=== PATIENT | male | born 1955 | race Caucasian/White ===

== ENCOUNTER → 2017-09-01 | Outpatient (CLI) | payer BC ==
[2017-09-01 16:16] LABS: Basophils # (A) 0.1 k/uL (0-0.2); Basophils % (A) 1 %; Eosinophils # (A) 0.2 k/uL (0-0.7); Eosinophils % (A) 4 %; HCT 46.1 % (39.0-53.0); HGB 15.2 gm/dL (13.0-17.5); Lymphocytes # (A) 1.4 k/uL (1.0-4.8); Lymphocytes % (A) 24 %; MCH 30.4 pg (25.0-35.0); Monocytes # (A) 0.4 k/uL (0-1.0); Monocytes % (A) 7 %; Neutrophils # (A) 3.4 k/uL (1.3-7.7); Neutrophils % (A) 61 %; Platelet Count 250 k/uL (150-450); RBC 5.01 m/uL (4.30-5.90); WBC 5.6 k/uL (3.8-10.6)
[2017-09-01 16:24] LABS: Calcium 9.6 mg/dL (8.4-10.2); Potassium 4.3 mmol/L (3.5-5.1)
== END | disposition home or self-care (01) ==
LOC: LABWHC1 15:28
PROVIDERS: ATTEND Urology
DX: Z01.818 Encounter for other preprocedural examination (principal); C61 Malignant neoplasm of prostate; R35.0 Frequency of micturition; R53.83 Other fatigue
CPT/HCPCS: 36415; 80048; 85025; 87086

== ENCOUNTER 2017-09-08 05:33 | Day surgery (SDC) | payer BC ==
[2017-09-01 11:38] VITALS: BMI 25.5
[~2017-09-08 05:33] MED LIST: HEPARIN SODIUM,PORCINE 5,000 UNIT/ML 1 ML VIAL SQ ONE
[2017-09-08] MEDS ORDERED: SCOPOLAMINE 1.5MG/72HR PATCH TRANSDERM ONE (05:51)
[2017-09-08] MEDS ORDERED: fentaNYL (PF) 50 MCG/ML 2 ML AMP IV PRN (05:51)
[2017-09-08] MEDS ORDERED: MIDAZOLAM 2 MG/2 ML VIAL IV PRN (05:51)
[2017-09-08] MEDS ORDERED: DEXAMETHASONE SOD PHOSPHATE 10 MG/ML 1 ML VIAL IV ONE (05:51)
[2017-09-08] MEDS ORDERED: ONDANSETRON ODT 4 MG TAB PO ONE (05:51)
[2017-09-08] MEDS ORDERED: LACTATED RINGERS 1,000 ML IV ONE ×4 (06:42→13:06)
[2017-09-08] MEDS ORDERED: LIDOCAINE 1% 20 ML VIAL (10MG/ML) FOR IV START INTRADERMA ONE (06:43)
[2017-09-08] MEDS ORDERED: BUPIVACAINE (PF) 0.25% 30 ML VIAL SQ ONE ×2 (07:30→13:11)
[2017-09-08] MEDS: ceFAZolin IN SWFI 2 GM/20 ML SYRINGE IVP ONE ×2 (07:30→07:33)
[2017-09-08] MEDS ORDERED: SUCCINYLCHOLINE CHLORIDE 100 MG/5 ML SYR IV ONE (07:33)
[2017-09-08] MEDS ORDERED: LIDOCAINE 1% INJ 10MG/ML (20 ML MDV) ONE (07:33)
[2017-09-08] MEDS ORDERED: VECURONIUM 10 MG VIAL IV ONE (07:33)
[2017-09-08] MEDS ORDERED: MIDAZOLAM 2 MG/2 ML VIAL ONE (07:33)
[2017-09-08] MEDS ORDERED: PROPOFOL 10 MG/ML 20 ML VIAL IV ONE (07:33)
[2017-09-08] MEDS ORDERED: GLYCOPYRROLATE 0.2 MG/ML 2 ML VIAL ONE (07:33)
[2017-09-08] MEDS ORDERED: NEOSTIGMINE 1 MG/ML 10 ML VIAL ONE (07:33)
[2017-09-08] MEDS ORDERED: PHENYLEPHRINE-0.9% NACL SYG 1 MG/10 ML SYRINGE ONE (07:33)
[2017-09-08] MEDS ORDERED: LABETALOL 5 MG/ML VIAL MDV ONE (07:33)
[2017-09-08] MEDS ORDERED: fentaNYL (PF) 50 MCG/ML 2 ML AMP ONE (07:33)
[2017-09-08] MEDS ORDERED: MAG HYDROX/AL HYDROX/SIMETH 30 ML CUP PO PRN (12:56)
[2017-09-08] MEDS ORDERED: ONDANSETRON 4 MG/2 ML VIAL IVP PRN (12:56)
[2017-09-08] MEDS ORDERED: MORPHINE SULFATE 4 MG/0.8 ML SYRINGE (INJ) IVP PRN (12:56)
[2017-09-08] MEDS ORDERED: ACETAMINOPHEN TAB 325 MG TAB PO PRN (12:56)
--- NOTE | 2017-09-08 13:19 | P.OP ---
Date of Procedure: 09/08/17 Procedure(s) Performed: PREOPERATIVE DIAGNOSIS: Bilateral inguinal hernia POSTOPERATIVE DIAGNOSIS: Bilateral direct inguinal hernia PROCEDURE: Laparoscopic repair antral inguinal hernia with the da Bhavana robot assistance with mesh SURGEON: Tess EBL: See anesthesia records ANESTHESIA: General COMPLICATIONS: None OPERATIVE PROCEDURE: Procedure was initiated by urology. The preperitoneal dissection took place including lymphadenectomy by them. After the prostate was removed and the anastomosis was complete irrigation of the operative site took place. No active bleeding was seen. The patient had a direct hernia bilaterally. Right side was larger than the left. A 15 cm x 10 cm Pro retail field representative mesh was placed first in the left inguinal space. All hernia sites were properly covered. An additional 15 x 10 cm mesh was then placed in the right groin covering the hernia location. Following that the peritoneal defect was closed using V LOC sutures. The incision line was inspected and no bleeding was seen. The needles were removed. The specimen bag was brought out through the supraumbilical 12 mm trocar site after lengthening both the skin incision vertically in the fascia as well. That fascial closure took place at that time using a running 0 Vicryl suture. The skin at all incision sites were closed using 4-0 Monocryl sutures. Dermabond was applied and the incision sites. DISPOSITION: Stable to recovery room
[2017-09-08] MEDS ORDERED: hydrALAZINE HCL 20 MG/ML 1 ML VIAL IVP ONE (13:30)
[2017-09-08] MEDS ORDERED: MORPHINE SULFATE 4 MG/0.8 ML SYRINGE (INJ) IVP ONE (13:47)
[2017-09-08] MEDS: LACTATED RINGERS 1,000 ML IV SCH (14:46)
[2017-09-08] MEDS: KETOROLAC 30 MG/ML 1 ML VIAL IVP PRN (18:00)
[2017-09-08 20:55] VITALS: RESP 16
[2017-09-08] MEDS: DEXTROSE 5%-0.45% NACL 1,000 ML IV SCH ×3 (22:06→22:07)
[2017-09-08] MEDS: HEPARIN SODIUM,PORCINE 5,000 UNIT/ML 1 ML VIAL SQ SCH (22:06)
[2017-09-09] MEDS: DEXTROSE 5%-0.45% NACL 1,000 ML IV SCH ×2 (06:15→13:32)
[2017-09-09] MEDS: LACTATED RINGERS 1,000 ML IV SCH (06:17)
--- NOTE | 2017-09-09 10:11 | P.DS ---
Providers Attending physician: Bryn Allen Primary care physician: [facility] Course: The patient was admitted yesterday for a robotic-assisted radical prostatectomy by . He did well overnight. His vital signs are stable. He is afebrile. He is ambulating. His diet will be advanced to regular. If he tolerates that he'll be discharged home. He'll follow-up in the office with Dr. Allen in 1 week. Postoperative instructions been given. He'll go home with an indwelling catheter. Has been given a prescription of Maize. Patient Condition at Discharge: Good Plan - Discharge Summary Discharge Rx Participant: No New Discharge Prescriptions: New Ciprofloxacin HCl [Cipro] 250 mg PO Q12HR #6 tablet Hydrocodone/Acetaminophen [Maize 5-325] 1 - 2 each PO Q4HR PRN #20 tab PRN Reason: Pain Discharge Medication List Ciprofloxacin HCl [Cipro] 250 mg PO Q12HR #6 tablet 09/08/17 [Rx] Hydrocodone/Acetaminophen [Maize 5-325] 1 - 2 each PO Q4HR PRN #20 tab 09/08/17 [Rx] Follow up Appointment(s)/Referral(s): Tulio Pulido MD [Medical Doctor] - 3 Weeks Bryn Allen MD [STAFF PHYSICIAN] - 09/18/17 Activity/Diet/Wound Care/Special Instructions: Discharge home with Thompson catheter. No lifting, driving, or strenuous activity. Okay to shower. Patient should begin taking ciprofloxacin on 2017. Discharge Disposition: HOME SELF-CARE
[2017-09-09] MEDS: HEPARIN SODIUM,PORCINE 5,000 UNIT/ML 1 ML VIAL SQ SCH (10:20)
--- NOTE | 2017-09-09 10:27 | P.PN ---
Subjective Progress Note Date: 09/09/17 Principal diagnosis: Bilateral inguinal hernia Patient doing well today. Mild discomfort in the periumbilical region, no groin discomfort of significance. He is ambulating. He is hoping to go home. Objective - Vital Signs Vital signs: Vital Signs Temp 98.6 F 09/08/17 19:20 Pulse 109 H 09/08/17 19:20 Resp 16 09/09/17 00:19 BP 145/73 09/08/17 19:20 Pulse Ox 100 09/08/17 19:38 Intake & Output 09/08/17 09/09/17 09/09/17 18:59 06:59 18:59 Intake Total 2625 1540 Output Total 1230 2000 1100 Balance 1395 -460 -1100 Weight 73.936 kg Intake: IV 2625 Intake, IV Titration 1000 Amount Dextrose 5%-0.45% NaCl 1, 1000 000 ml @ 125 mls/hr IV . Q8H [facility] Rx#:[id number] Oral 540 Output: Urine 1030 2000 [address] Urethral 760 1100 Estimated Blood Loss 200 Other: Voiding Method Indwelling Catheter Indwelling Catheter # Voids 2 - Exam Abdomen: Soft, nondistended, mild tenderness at incision sites, mild groin tenderness Assessment and Plan Plan: Continue ambulation. No heavy lifting. Home per urology.
[2017-09-09] MEDS: KETOROLAC 30 MG/ML 1 ML VIAL IVP PRN (13:31)
[2017-09-09 14:26] VITALS: BP 135/85; PULSE 92; TEMP 100
--- NOTE | 2017-10-05 17:19 | P.OP ---
Date of Procedure: 09/08/17 Preoperative Diagnosis: Adenocarcinoma of the prostate, clinical stage TIc NX M0 Postoperative Diagnosis: Same Procedure(s) Performed: Nerve-Sparing Robotic-assisted Laparoscopic Prostatectomy (RALP) with Bilateral Pelvic Lymphadenectomy Anesthesia: ZEENAT Surgeon: Bryn Allen Damage Inside Adjuster #1: Lidia Villagomez Estimated Blood Loss (ml): 150 IV fluids (ml): 1,600 Pathology: other (Prostate, seminal vesicles, bilateral pelvic lymph nodes) Condition: stable Disposition: PACU Indications for Procedure: The patient is a 61-year-old male with no family history of prostate cancer. He underwent a prostate ultrasound with biopsies in May 2016, revealing small foci of Mingo 6 adenocarcinoma in 3 of 12 biopsies. His Prolaris score was low , and he was advised to undergo semiannual PSA/DARLIN with annual surveillance biopsies. He recently underwent repeat biopsies, revealing a focus of Mingo 4+ 3 adenocarcinoma. He has thus elected to undergo a nerve-sparing RALP with (B) PLND. He understands the possibility of post-op erectile dysfunction despite preservation of the neurovascular bundles. He also understands the possible need for adjuvant therapy. He will also undergo a BIH repair by Dr. Pulido; his umbilical hernia will also be repaired. Operative Findings: Bilateral inguinal hernias. No evidence of extraprostatic disease. Description of Procedure: The patient was taken in the operating room and placed in the dorsal lithotomy position, with his legs supported in Mandeep stirrups. He was carefully positioned on a beanbag for stability. The abdomen and external genitalia were prepped and draped sterilely. A Thompson catheter was inserted. The Veress needle was passed through the anterior abdominal wall immediately cephalad to the umbilicus, and insufflation was performed to a pressure of 20 mm Hg. Once insufflation was performed, the Veress needle was removed and a supraumbilical incision was made, through which a 12 mm camera port was placed. Under camera guidance, 3 8 mm robotic ports were placed, 2 on the left and one on the right. An additional 12 mm port was placed on the right lateral side for use as an data analysis assistant port. A 5 mm port was placed to the right of the camera port for suction. The patient was placed in Trendelenburg position, and docking was then performed to the da Bhavana system utilizing a 4-arm approach. The abdomen was examined. The sigmoid colon was mobilized out of the pelvis. The peritoneum was incised laterally in a wide fashion to create a peritoneal flap, to be sutured over the hernia repair later in the procedure. The endopelvic fascia was opened bilaterally, and muscular attachments from the urogenital diaphragm were swept away from the prostate. Bilateral pelvic lymphadenectomies were performed in the standard fashion. The peritoneal incisions were extended in a cephalad direction, and the vas deferens were divided bilaterally. Margins of dissection were the bifurcation of the iliac vessels proximally, the circumflex iliac vein distally, the external iliac artery laterally, and the obturator nerve medially. A combination of sharp and blunt dissection was used. Care was taken to avoid any neurovascular injury, and the use of monopolar electrocautery was avoided immediately adjacent to neurovascular structures. The lymphatic package was clipped distally. No enlarged lymph nodes were encountered. There were no complications. The vesical neck was incised transversely, down to the lumen. The Thompson catheter was brought out through the anterior vesical neck incision and was used for traction. The posterior aspect of the vesical neck was incised, such that the full-thickness of the vesical neck was divided. The anterior layer of the Denonvilliers fascia was incised, exposing the vas deferens. Each were isolated and divided. Next, each of the seminal vesicles were dissected away from adjacent tissues, and vascular attachments were cauterized and divided. The posterior leaf of Denonvilliers fascia was incised transversely, allowing entry into the plane between the prostate and rectum. With lateral spreading, this plane was developed down to the apex. This exposed the lateral vascular pedicles bilaterally. These were clipped and divided in an antegrade fashion, down to the apex. The use of electrocautery was avoided to prevent thermal damage to the nerves. A nerve sparing procedure was performed on the right side. A partial nerve sparing procedure was performed on the left side. The remaining apical attachments were swept away from the prostate. The dorsal venous complex was incised, as well as periurethral tissue. At this point, only the urethra remained intact. This was transected immediately distal to the prostatic apex using cold scissors. The specimen was placed within a specimen bag. The dorsal venous complex was sutured using a V-Loc suture in a running fashion. A second V-Loc suture was then used to place the Raza stitch, incorporating the rhabdosphincter and the edge of Denonvilliers fascia. This allowed the bladder to be taken down to the urethra, leaving the vesical neck immediately adjacent to the urethra. The vesicourethral anastomosis was then performed using a V-Loc suture in a running fashion. After completing the anastomosis, an 18-Malay Thompson catheter was placed and approximately 150 mL of 0.9 normal saline were instilled into the bladder. No extravasation of irrigant from the vesicourethral anastomosis was noted. A small amount of oozing was noted from the vascular pedicles, so Surgicel was placed bilaterally. At this point, Dr. Pulido performed the bilateral inguinal hernia repair with mesh. He reapproximated the peritoneal edges for coverage, and this will be dictated separately. The patient was returned to the supine position. Undocking was performed, and the specimen bag sutures were passed through the camera port. After removing all the ports and allowing all of the CO2 to be released from the peritoneal cavity, the camera port incision was enlarged to allow removal of the surgical specimen. Dr. Pulido then performed an umbilical hernia repair. Each of the skin incisions were then closed using 4-0 Monocryl suture in a subcuticular fashion. Marcaine was injected at each of the incision sites. Dermabond was applied to each incision. The Thompson catheter was connected to gravity drainage. All sponge and needle counts were correct. The patient tolerated the procedure well was taken to the recovery room in stable condition.
== END 2017-09-09 15:40 | disposition home or self-care (01) ==
LOC: OR 05:33 → 3SUR 13:24 → OR 09-09 15:40
PROVIDERS: ATTEND Urology
DX: K40.20 Bilateral inguinal hernia, without obstruction or gangrene, not specified as recurrent (principal); N40.0 Benign prostatic hyperplasia without lower urinary tract symptoms; C61 Malignant neoplasm of prostate; Z80.0 Family history of malignant neoplasm of digestive organs; Z80.41 Family history of malignant neoplasm of ovary; Z80.52 Family history of malignant neoplasm of bladder
CPT/HCPCS: 38571; 49650; 55866; S2900; 86850; 86900; 86901; 88307; 88309; 94760

== ENCOUNTER → 2017-11-22 | Outpatient (CLI) | payer BC | END | disposition home or self-care (01) | LOC: LABWHC1 16:34 | PROVIDERS: ATTEND Urology | DX: C61 Malignant neoplasm of prostate (principal) | CPT/HCPCS: 36415; 84153 ==

== ENCOUNTER → 2018-02-26 | Outpatient (CLI) | payer BC | END | disposition home or self-care (01) | LOC: LABWHC1 16:36 | PROVIDERS: ATTEND Urology | DX: C61 Malignant neoplasm of prostate (principal) | CPT/HCPCS: 36415; 84153 ==

== ENCOUNTER 2018-03-29 09:43 | Day surgery (SDC) | payer BC ==
[2018-03-27 12:09] VITALS: BMI 25.5
[~2018-03-29 09:43] MED LIST changes: -HEPARIN SODIUM,PORCINE 5,000 UNIT/ML 1 ML VIAL SQ ONE; +LACTATED RINGERS 1,000 ML IV SCH; +LIDOCAINE 1% 20 ML VIAL (10MG/ML) FOR IV START INTRADERMA PRN; +MIDAZOLAM 2 MG/2 ML VIAL IV PRN
[2018-03-29 10:04] VITALS: TEMP 97
[2018-03-29] MEDS ORDERED: PROPOFOL 10 MG/ML 20 ML VIAL IV ONE (10:47)
--- NOTE | 2018-03-29 11:15 | P.PCN ---
Date of Procedure: 03/29/18 Procedure(s) Performed: Procedure: Total colonoscopy. Preoperative diagnosis: Screening for neoplasia. Postoperative diagnosis: Exam within normal limits. Preparation: HalfLytely prep. Sedation: Was provided by anesthesia. Brief clinical history: The patient is a 62-year-old male who is scheduled for this evaluation for screening for neoplasia because of family history of colon cancer in his sister and mother in addition to age as a risk factor. His last exam was in 2011. The patient has no abdominal complaints, bleeding or anemia. Procedure: With the patient on his left lateral decubitus position and after informed consent and adequate sedation, the perianal area was inspected and it did not show any fissures or fistulas. There were no masses felt on digital rectal examination. The Olympus CFQ 160L video colonoscope was then inserted in the rectum in the usual fashion and advanced to the cecum. The mucosa appeared healthy. No obvious polyps or tumors were seen or any obvious diverticular disease or other pathology. I retroflexed the endoscope in the rectum before the endoscope was withdrawn. The patient tolerated the procedure well. Plan: The patient was reassured. He will follow up with you as planned and I recommended repeat exam in 5 years.
[2018-03-29 11:36] VITALS: BP 125/70; PULSE 78; RESP 18
== END 2018-03-29 11:47 | disposition home or self-care (01) ==
LOC: ORWHC2ENDO 09:43
DX: Z12.11 Encounter for screening for malignant neoplasm of colon (principal); Z80.0 Family history of malignant neoplasm of digestive organs; Z90.79 Acquired absence of other genital organ(s); Z85.46 Personal history of malignant neoplasm of prostate
CPT/HCPCS: J2704; G0105

== ENCOUNTER → 2018-06-04 | Outpatient (CLI) | payer BC | END | disposition home or self-care (01) | LOC: LABWHC1 17:00 | PROVIDERS: ATTEND Urology | DX: C61 Malignant neoplasm of prostate (principal) | CPT/HCPCS: 36415; 84153 ==

== ENCOUNTER → 2018-07-07 | Outpatient (CLI) | payer BC ==
[2018-07-07 09:38] LABS: Basophils # (A) 0.1 k/uL (0-0.2); Basophils % (A) 1 %; Eosinophils # (A) 0.2 k/uL (0-0.7); Eosinophils % (A) 3 %; HCT 48.8 % (39.0-53.0); HGB 15.8 gm/dL (13.0-17.5); Lymphocytes # (A) 0.4 k/uL (1.0-4.8); Lymphocytes % (A) 5 %; MCH 31.5 pg (25.0-35.0); MCHC 32.3 g/dL (31.0-37.0); MCV 97.6 fL (80.0-100.0); Mean Platelet Volume 6.7; Monocytes # (A) 0.5 k/uL (0-1.0); Monocytes % (A) 8 %; Neutrophils # (A) 5.6 k/uL (1.3-7.7); Neutrophils % (A) 81 %; Platelet Count 188 k/uL (150-450); RDW 13.2 % (11.5-15.5)
[2018-07-07 17:09] LABS: Albumin 4.6 g/dL (3.80-4.90); Anion Gap 7.9 mmol/L (4.00-12.00); Calcium 9.6 mg/dL (8.7-10.3); Carbon Dioxide 30.1 mmol/L (21.6-31.8); Globulin 2.3 g/dL (1.6-3.3); Potassium 4.7 mmol/L (3.5-5.5); Total Bilirubin 0.7 mg/dL (0.2-1.2); Total Protein 6.9 g/dL (6.2-8.2)
== END | disposition home or self-care (01) ==
LOC: LABWHC1 08:29
PROVIDERS: ATTEND Internal Medicine
DX: C61 Malignant neoplasm of prostate (principal); Z13.6 Encounter for screening for cardiovascular disorders
CPT/HCPCS: 36415; 80053; 80061; 85025

== ENCOUNTER → 2018-07-23 | Outpatient (CLI) | payer BC ==
--- NOTE | 2018-07-23 07:29 | US ---
EXAMINATION TYPE: US kidneys/renal and bladder DATE OF EXAM: 07/23/2018 COMPARISON: NONE CLINICAL HISTORY: R79.89 Elevated Creatinine. EXAM MEASUREMENTS: Right Kidney: 10.4 x 5.8 x 4.4 cm Left Kidney: 11.2 x 5.9 x 5.3 cm Post Void Residual Volume: 15.3 mL Right Kidney: No hydronephrosis or masses seen Left Kidney: No hydronephrosis or masses seen Bladder: wnl Bilateral Jets seen: Yes Normal Post Void Residual: Yes There is no evidence for hydronephrosis at this point in time. No nephrolithiasis is seen. No margaret s are identified. The urinary bladder is not greatly distended without intraluminal mass or wall thi ckening. Bladder is completely emptied on voiding. Bilateral ureteral jets are seen. IMPRESSION: No hydronephrosis is evident bilaterally.
== END ==
LOC: RADUSWWP 06:46
PROVIDERS: ATTEND Internal Medicine
DX: R79.89 Other specified abnormal findings of blood chemistry (principal)
CPT/HCPCS: 76770

== ENCOUNTER → 2018-10-20 | Outpatient (CLI) | payer BC | END | disposition home or self-care (01) | LOC: LABWHC1 08:54 | PROVIDERS: ATTEND Internal Medicine | DX: R79.89 Other specified abnormal findings of blood chemistry (principal) | CPT/HCPCS: 36415; 82565; 84520 ==

== ENCOUNTER → 2019-03-22 | Outpatient (CLI) | payer BC | LOC: LABWHC1 16:32 | PROVIDERS: ATTEND Urology | DX: C61 Malignant neoplasm of prostate (principal) | CPT/HCPCS: 36415; 84153 ==

== ENCOUNTER → 2020-03-04 | Outpatient (CLI) | payer BC | END | disposition home or self-care (01) | LOC: LABWHC1 07:17 | PROVIDERS: ATTEND Urology | DX: C61 Malignant neoplasm of prostate (principal) | CPT/HCPCS: 36415; 84153 ==

== ENCOUNTER → 2021-03-03 | Outpatient (CLI) | payer BC | END | disposition home or self-care (01) | LOC: LABWHC1 08:53 | PROVIDERS: ATTEND Urology | DX: C61 Malignant neoplasm of prostate (principal) | CPT/HCPCS: 36415; 84153 ==

== ENCOUNTER 2021-04-25 12:08 | Emergency (ER) | payer BC ==
[2021-04-25] MEDS ORDERED: ACETAMINOPHEN TAB 500 MG TAB PO STA (12:48)
--- NOTE | 2021-04-25 12:48 | ED ---
General Adult HPI - General Chief complaint: Upper Respiratory Infection Stated complaint: Covid+/BAM Time Seen by Provider: 04/25/21 12:24 Source: patient, RN notes reviewed Mode of arrival: wheelchair Limitations: no limitations - History of Present Illness Initial comments: 65-year-old male with a past medical history of prostate cancer presents to the emergency room for antibody therapy. Patient developed symptoms on 04/21/2021 and tested positive on 04/22/2021. Patient states he is just not getting better. States his cough is worsening. He is slightly short of breath however no significant shortness of breath. No chest pain. He is not vaccinated. He has been having low-grade fevers on and off and body aches.Patient has no other complaints at this time including shortness of breath, chest pain, abdominal pain, nausea or vomiting, headache, or visual changes. - Related Data Home Medications Medication Instructions Recorded Confirmed Multivitamin [Men's Multi-Vitamin] 1 each PO DAILY 03/27/18 03/29/18 Previous Rx's Medication Instructions Recorded Benzonatate [Tessalon Perles] 200 mg PO Q8H PRN #15 capsule 04/25/21 Allergies Allergy/AdvReac Type Severity Reaction Status Date / Time No Known Allergies Allergy Verified 04/25/21 12:13 Review of Systems ROS Statement: Those systems with pertinent positive or pertinent negative responses have been documented in the HPI. ROS Other: All systems not noted in ROS Statement are negative. Past Medical History Past Medical History: Cancer, Prostate Disorder Additional Past Medical History / Comment(s): PROSTATE CANCER. History of Any Multi-Drug Resistant Organisms: None Reported Past Surgical History: Hernia Repair, Prostate Surgery Additional Past Surgical History / Comment(s): colonoscopy, Antonio Inguinal Hernia's Past Anesthesia/Blood Transfusion Reactions: No Reported Reaction Additional Past Anesthesia/Blood Transfusion Reaction / Comment(s): . Past Psychological History: No Psychological Hx Reported Smoking Status: Never smoker Past Alcohol Use History: Occasional Past Drug Use History: None Reported - Past Family History Mother Family Medical History: Cancer Additional Family Medical History / Comment(s): colon & cervical cancer Father Family Medical History: Cancer Additional Family Medical History / Comment(s): bladder cancer ,emphysema Sister(s) Family Medical History: Cancer Additional Family Medical History / Comment(s): breast & rectal cancer Daughter(s) Family Medical History: Cancer Additional Family Medical History / Comment(s): cervical cancer General Exam Limitations: no limitations General appearance: alert, in no apparent distress Head exam: Present: atraumatic Eye exam: Present: normal appearance, PERRL, EOMI. Absent: scleral icterus, conjunctival injection ENT exam: Present: normal exam, mucous membranes moist Neck exam: Present: normal inspection, full ROM. Absent: tenderness Respiratory exam: Present: normal lung sounds bilaterally. Absent: respiratory distress, wheezes Cardiovascular Exam: Present: regular rate, normal rhythm, normal heart sounds GI/Abdominal exam: Present: soft, normal bowel sounds. Absent: distended, tenderness Course Vital Signs 04/25/21 04/25/21 12:14 12:35 Temperature 98.2 F Pulse Rate 96 88 Respiratory 18 20 Rate Blood Pressure 137/81 138/80 O2 Sat by Pulse 91 L 92 L Oximetry Medical Decision Making - Medical Decision Making Vitals are stable. Patient is 91-92% on room air. Patient only wants antibody infusion. I did discuss that he needs to closely monitor his oxygen and if it is going below 90 or he is getting more short of breath he needs to come back to the emergency room. He is agreeable to this. Monoclonal antibodies given. He was monitored for an hour. He will return here for any worsening symptoms. Disposition Clinical Impression: COVID-19 Disposition: HOME SELF-CARE Condition: Fair Instructions (If sedation given, give patient instructions): Coronavirus Diseas e 2019 (COVID-19) Additional Instructions: Please take vitamin C, D, and zinc outpatient. Take Motrin and Tylenol for fever and bodyaches. Take Tessalon Perles for cough. Please follow-up with your doctor in 1-2 days. Return to the emergency room for any worsening symptoms. Prescriptions: Benzonatate [Tessalon Perles] 200 mg PO Q8H PRN #15 capsule PRN Reason: Cough Is patient prescribed a controlled substance at d/c from ED?: No Referrals: Jeri Stone MD [Primary Care Provider] - 1-2 days Time of Disposition: 12:47
[2021-04-25] MEDS ORDERED: BAMLANIVIMAB (EUA) 700 MG, ETESEVIMAB (EUA) 1,400 MG in SODIUM CHLORIDE 0.9% 50 ML IVPB ONE (13:30)
[2021-04-25] MEDS ORDERED: SODIUM CHLORIDE 0.9% 50 ML IVPB ONE (13:30)
[2021-04-25 15:06] VITALS: BP 136/76; PULSE 71; RESP 18; TEMP 98.1
== END 2021-04-25 15:02 | disposition home or self-care (01) ==
LOC: EC 12:08
DX: U07.1 COVID-19 (principal); Z85.46 Personal history of malignant neoplasm of prostate
CPT/HCPCS: 99284; M0245

== ENCOUNTER 2021-04-25 18:17 | Inpatient (IN) | payer BC ==
[2021-04-25] MEDS ORDERED: ALBUTEROL HFA INHALER INHALATION STA (18:34)
[2021-04-25] MEDS ORDERED: DEXAMETHASONE SOD PHOSPHATE 10 MG/ML 1 ML VIAL IV STA (18:35)
[2021-04-25] MEDS ORDERED: SODIUM CHLORIDE 0.9% 500 ML 500 ML IV ONE (18:35)
--- NOTE | 2021-04-25 18:39 | ED ---
General Adult HPI - General Chief complaint: Shortness of Breath Stated complaint: SINCERE, low oxygen, covid + Time Seen by Provider: 04/25/21 18:26 Source: patient, family, RN notes reviewed, old records reviewed Mode of arrival: ambulatory Limitations: no limitations - History of Present Illness Initial comments: 65-year-old male presenting for reevaluation. Patient was seen in the emergency department earlier today for coronavirus. he tested positive on the . His symptoms began on April 21. He's had cough and dyspnea. He was given monocl onal antibodies earlier today and discharged home with an oxygen saturation around 92%. At home his oxygen did drop into the mid 80s. He return to the emergency department for repeat evaluation. He's had no significant vomiting or diarrhea. He's had low-grade fevers and myalgias as well as cough and mild dyspnea. - Related Data Previous Rx's Medication Instructions Recorded Benzonatate [Tessalon Perles] 200 mg PO Q8H PRN #15 capsule 04/25/21 Allergies Allergy/AdvReac Type Severity Reaction Status Date / Time No Known Allergies Allergy Verified 04/25/21 20:03 Review of Systems ROS Statement: Those systems with pertinent positive or pertinent negative responses have been documented in the HPI. ROS Other: All systems not noted in ROS Statement are negative. Past Medical History Past Medical History: Cancer, Prostate Disorder Additional Past Medical History / Comment(s): PROSTATE CANCER. History of Any Multi-Drug Resistant Organisms: None Reported Past Surgical History: Hernia Repair, Prostate Surgery Additional Past Surgical History / Comment(s): colonoscopy, Antonio Inguinal Hernia's Past Anesthesia/Blood Transfusion Reactions: No Reported Reaction Additional Past Anesthesia/Blood Transfusion Reaction / Comment(s): . Past Psychological History: No Psychological Hx Reported Smoking Status: Never smoker Past Alcohol Use History: Occasional Past Drug Use History: None Reported - Past Family History Mother Family Medical History: Cancer Additional Family Medical History / Comment(s): colon & cervical cancer Father Family Medical History: Cancer Additional Family Medical History / Comment(s): bladder cancer ,emphysema Sister(s) Family Medical History: Cancer Additional Family Medical History / Comment(s): breast & rectal cancer Daughter(s) Family Medical History: Cancer Additional Family Medical History / Comment(s): cervical cancer General Exam Limitations: no limitations General appearance: alert, in no apparent distress Head exam: Present: atraumatic, normocephalic Eye exam: Present: normal appearance, PERRL ENT exam: Present: mucous membranes dry Neck exam: Present: normal inspection. Absent: tenderness, meningismus Respiratory exam: Present: rales, decreased breath sounds. Absent: respiratory distress Cardiovascular Exam: Present: regular rate, normal rhythm GI/Abdominal exam: Present: soft. Absent: distended, tenderness, guarding Extremities exam: Present: normal inspection, normal capillary refill. Absent: pedal edema, calf tenderness Neurological exam: Present: alert, oriented X3, CN II-XII intact. Absent: motor sensory deficit Psychiatric exam: Present: normal affect, normal mood Skin exam: Present: warm, dry, intact. Absent: cyanosis, diaphoretic, erythema Course Vital Signs 04/25/21 04/25/21 04/25/21 18:21 18:33 19:24 Temperature 97.6 F Pulse Rate 93 Respiratory 20 18 18 Rate Blood Pressure 130/79 O2 Sat by Pulse 85 L 91 L Oximetry 04/25/21 19:58 Temperature 102.1 F H Pulse Rate 101 H Respiratory 18 Rate Blood Pressure 123/80 O2 Sat by Pulse 90 L Oximetry EKG Findings - EKG Comments: EKG Findings:: EKG: Normal sinus rhythm, rate of 94, PA interval 140, QRS duration 68, QTC [address] segment elevation Medical Decision Making - Medical Decision Making 65-year-old male with coronavirus, hypoxia I lateral pneumonia on x-ray. Patient has normal CBC. He has a mildly elevated d-dimer at 1.01. He has an elevated BUN/creatinine. He has an elevated LDH CRP. His given IV fluids and IV steroids in the emergency department. Initially CT angiography was ordered however given the elevated renal function this will be held to await hopeful improvement of BUN/creatinine. He is given a shot of Lovenox and see department. Case discussed with Dr. Josue who will admit. - Lab Data Result diagrams: 04/25/21 19:18 04/25/21 19:18 Lab Results 04/25/21 04/25/21 04/25/21 Range/Units 19:18 19:18 19:18 WBC 7.7 (3.8-10.6) k/uL RBC 4.93 (4.30-5.90) m/uL Hgb 16.0 (13.0-17.5) gm/dL Hct 46.8 (39.0-53.0) % MCV 94.8 (80.0-100.0) fL MCH 32.5 (25.0-35.0) pg MCHC 34.3 (31.0-37.0) g/dL RDW 12.9 (11.5-15.5) % Plt Count 178 (150-450) k/uL MPV 8.1 Neutrophils % 91 % Lymphocytes % 4 % Monocytes % 4 % Eosinophils % 0 % Basophils % 0 % Neutrophils # 7.0 (1.3-7.7) k/uL Lymphocytes # 0.3 L (1.0-4.8) k/uL Monocytes # 0.3 (0-1.0) k/uL Eosinophils # 0.0 (0-0.7) k/uL Basophils # 0.0 (0-0.2) k/uL PT 10.1 (9.0-12.0) sec INR 0.9 (<1.2) APTT 26.9 (22.0-30.0) sec D-Dimer 1.01 H (<0.60) mg/L FEU Sodium 135 L (137-145) mmol/L Potassium 4.4 (3.5-5.1) mmol/L Chloride 96 L (98-107) mmol/L Carbon Dioxide 26 (22-30) mmol/L Anion Gap 13 mmol/L BUN 26 H (9-20) mg/dL Creatinine 1.38 H (0.66-1.25) mg/dL Est GFR (CKD-EPI)AfAm 62 (>60 ml/min/1.73 sqM) Est GFR (CKD-EPI)NonAf 54 (>60 ml/min/1.73 sqM) Glucose 114 H (74-99) mg/dL Plasma Lactic Acid Chapo (0.7-2.0) mmol/L Calcium 8.3 L (8.4-10.2) mg/dL Magnesium 2.2 (1.6-2.3) mg/dL Total Bilirubin 0.7 (0.2-1.3) mg/dL AST 62 H (17-59) U/L ALT 31 (4-49) U/L Alkaline Phosphatase 86 (38-126) U/L Lactate Dehydrogenase 1446 H (313-618) U/L C-Reactive Protein 17.6 H (<1.0) mg/dL Total Protein 7.1 (6.3-8.2) g/dL Albumin 4.1 (3.5-5.0) g/dL 04/25/21 Range/Units 19:18 WBC (3.8-10.6) k/uL RBC (4.30-5.90) m/uL Hgb (13.0-17.5) gm/dL Hct (39.0-53.0) % MCV (80.0-100.0) fL MCH (25.0-35.0) pg MCHC (31.0-37.0) g/dL RDW (11.5-15.5) % Plt Count (150-450) k/uL MPV Neutrophils % % Lymphocytes % % Monocytes % % Eosinophils % % Basophils % % Neutrophils # (1.3-7.7) k/uL Lymphocytes # (1.0-4.8) k/uL Monocytes # (0-1.0) k/uL Eosinophils # (0-0.7) k/uL Basophils # (0-0.2) k/uL PT (9.0-12.0) sec INR (<1.2) APTT (22.0-30.0) sec D-Dimer (<0.60) mg/L FEU Sodium (137-145) mmol/L Potassium (3.5-5.1) mmol/L Chloride (98-107) mmol/L Carbon Dioxide (22-30) mmol/L Anion Gap mmol/L BUN (9-20) mg/dL Creatinine (0.66-1.25) mg/dL Est GFR (CKD-EPI)AfAm (>60 ml/min/1.73 sqM) Est GFR (CKD-EPI)NonAf (>60 ml/min/1.73 sqM) Glucose (74-99) mg/dL Plasma Lactic Acid Chapo 1.3 (0.7-2.0) mmol/L Calcium (8.4-10.2) mg/dL Magnesium (1.6-2.3) mg/dL Total Bilirubin (0.2-1.3) mg/dL AST (17-59) U/L ALT (4-49) U/L Alkaline Phosphatase (38-126) U/L Lactate Dehydrogenase (313-618) U/L C-Reactive Protein (<1.0) mg/dL Total Protein (6.3-8.2) g/dL Albumin (3.5-5.0) g/dL Disposition Clinical Impression: COVID-19, Hypoxia Disposition: ADMITTED IP TO THIS [facility] Condition: Stable Is patient prescribed a controlled substance at d/c from ED?: No Referrals: Jeri Stone MD [Primary Care Provider] - 1-2 days Decision to Admit Reason: Admit from EC Decision Date: 04/25/21 Decision Time: 21:02
--- NOTE | 2021-04-25 19:34 | XR ---
EXAMINATION TYPE: XR chest 1V portable DATE OF EXAM: 04/25/2021 COMPARISON: NONE HISTORY: Short of breath TECHNIQUE: Single view FINDINGS: There is normal heart size. There is coarse predominantly interstitial infiltrate in the mi d and lower lung curtis. There is some coalescent density left lower lobe. There are no hilar masses. Mediastinum is normal. IMPRESSION: Bilateral lower lobe pneumonia. No heart failure seen.
[2021-04-25 19:41] LABS: Basophils % (A) 0 %; Eosinophils % (A) 0 %; HCT 46.8 % (39.0-53.0); Lymphocytes # (A) 0.3 k/uL (1.0-4.8); Lymphocytes % (A) 4 %; MCH 32.5 pg (25.0-35.0); MCHC 34.3 g/dL (31.0-37.0); MCV 94.8 fL (80.0-100.0); Mean Platelet Volume 8.1; Monocytes # (A) 0.3 k/uL (0-1.0); Monocytes % (A) 4 %; Neutrophils % (A) 91 %; Platelet Count 178 k/uL (150-450); RBC 4.93 m/uL (4.30-5.90); RDW 12.9 % (11.5-15.5); WBC 7.7 k/uL (3.8-10.6)
[2021-04-25 19:51] LABS: INR 0.9 (<1.2); Partial Thromboplastin Time 26.9 sec (22.0-30.0); Prothrombin Time 10.1 sec (9.0-12.0)
[2021-04-25 20:07] LABS: Albumin 4.1 g/dL (3.5-5.0); Calcium 8.3 mg/dL (8.4-10.2); Magnesium 2.2 mg/dL (1.6-2.3); Potassium 4.4 mmol/L (3.5-5.1); Total Bilirubin 0.7 mg/dL (0.2-1.3); Total Protein 7.1 g/dL (6.3-8.2)
[2021-04-25] MEDS ORDERED: ACETAMINOPHEN TAB 325 MG TAB PO STA (20:16)
[2021-04-25] MEDS ORDERED: ACETAMINOPHEN TAB 325 MG TAB PO PRN (20:33)
[2021-04-25] MEDS ORDERED: NALOXONE 0.4 MG/ML 1 ML VIAL IV PRN (20:33)
[2021-04-25 20:52] LABS: C Reactive Protein 17.6 mg/dL (<1.0)
[2021-04-25] MEDS ORDERED: ENOXAPARIN 80 MG/0.8 ML SYRINGE SQ STA (20:53)
[2021-04-25] MEDS: SODIUM CHLORIDE 0.9% 1,000 ML IV SCH (21:12)
--- NOTE | 2021-04-25 21:34 | P.HPIM ---
History of Present Illness H&P Date: 04/25/21 Patient is a 65-year-old male with a no known PMH who presents to the emergency room with complaints of gradually worsening shortness of breath. The patient reports that he was diagnosed with COVID-19 5 days ago, and has had worsening fatigue, fever, nonproductive cough, and shortness of breath. He denied experiencing chest discomfort, lower extremity pain, nausea, vomiting, abdominal pain, diarrhea. Chest x-ray in the emergency room was consistent with multifocal pneumonia with EKG showing normal sinus rhythm at [address]/T-wave changes noted as read by me. Laboratory evaluation revealed elevated inflammatory markers with d-dimer 1.0, along with kidney injury with creatinine 1.38. The patient was hypoxic in the emergency room upon presentation with SpO2 of 85% on room air. Review of systems: Pertinent positives and negatives as discussed in HPI, a complete review of systems was performed and all other systems are negative. Physical examination: General: non toxic, no distress, appears at stated age, overweight Derm: no unusual rashes/lesions no unusual ecchymoses, warm, dry Head: atraumatic, normocephalic, symmetric Eyes: EOMI, no lid lag, anicteric sclera, pupils equal round reactive to light ENT: Nose and ears atraumatic, no thrush, no pharyngeal erythema Neck: No thyromegaly, no cervical lymphadenopathy, trachea midline, supple Mouth: no lip lesion, mucus membranes moist Cardiovascular: S1S2 reg, no murmur, positive posterior tibial pulse bilateral, no edema, capillary refill less than 2 seconds Lungs: Bilateral rhonchi, no wheezing, no accessory muscle use Abdominal: soft, nontender to palpation, no guarding, no appreciable organomegaly, normal bowel sounds Ext: no gross muscle atrophy, muscle strength 5 out of 5 in all 4 extremities grossly, no contractures, Neuro: CN II-XI grossly intact, light touch intact all 4 extremities, finger to nose within normal limits, Psych: Alert, oriented, appropriate affect Assessment/plan COVID-19 pneumonia with acute hypoxic respiratory failure -Continue dexamethasone -Zinc, vitamin C, vitamin D, melatonin -Supplemental oxygen -Pulmonary consulted -Monitor inflammatory markers Kidney injury, acute versus chronic -Continue with IV fluids -Monitor for now Elevated d-dimer -Likely secondary to ongoing COVID-19 pneumonia -Consider computed tomography scan if kidney function improves and d-dimer con tinues to be elevated DVT prophylaxis -Lovenox The patient is admitted with an anticipated greater than 2 midnight stay for evaluation of COVID CODE STATUS: Full Code Discussed with: patient Anticipated discharge date: 2-[address]: Home Past Medical History Past Medical History: Cancer, Prostate Disorder Additional Past Medical History / Comment(s): PROSTATE CANCER. History of Any Multi-Drug Resistant Organisms: None Reported Past Surgical History: Hernia Repair, Prostate Surgery Additional Past Surgical History / Comment(s): colonoscopy, Antonio Inguinal Hernia's Past Anesthesia/Blood Transfusion Reactions: No Reported Reaction Additional Past Anesthesia/Blood Transfusion Reaction / Comment(s): . Past Psychological History: No Psychological Hx Reported Smoking Status: Never smoker Past Alcohol Use History: Occasional Past Drug Use History: None Reported - Past Family History Mother Family Medical History: Cancer Additional Family Medical History / Comment(s): colon & cervical cancer Father Family Medical History: Cancer Additional Family Medical History / Comment(s): bladder cancer ,emphysema Sister(s) Family Medical History: Cancer Additional Family Medical History / Comment(s): breast & rectal cancer Daughter(s) Family Medical History: Cancer Additional Family Medical History / Comment(s): cervical cancer Medications and Allergies Home Medications Medication Instructions Recorded Confirmed Type Benzonatate [Tessalon Perles] 200 mg PO Q8H PRN #15 capsule 04/25/21 04/25/21 Rx Allergies Allergy/AdvReac Type Severity Reaction Status Date / Time No Known Allergies Allergy Verified 04/25/21 20:03 Physical Exam Vitals: Vital Signs Temp Pulse Resp BP Pulse Ox 04/25/21 21:09 101.1 F H 95 18 123/90 92 L 04/25/21 20:00 90 18 143/84 93 L 04/25/21 19:58 102.1 F H 101 H 18 123/80 90 L 04/25/21 19:24 18 04/25/21 18:33 18 91 L 04/25/21 18:21 97.6 F 93 20 130/79 85 L Intake and Output 04/25/21 04/25/21 04/25/21 06:59 14:59 22:59 Other: Weight 77.111 kg Results CBC & Chem 7: 04/25/21 19:18 04/25/21 19:18 Labs: Abnormal Lab Results - Last 24 Hours (Table) 04/25/21 04/25/21 04/25/21 Range/Units 19:18 19:18 19:18 Lymphocytes # 0.3 L (1.0-4.8) k/uL D-Dimer 1.01 H (<0.60) mg/L FEU Sodium 135 L (137-145) mmol/L Chloride 96 L (98-107) mmol/L BUN 26 H (9-20) mg/dL Creatinine 1.38 H (0.66-1.25) mg/dL Glucose 114 H (74-99) mg/dL Calcium 8.3 L (8.4-10.2) mg/dL AST 62 H (17-59) U/L Lactate Dehydrogenase 1446 H (313-618) U/L C-Reactive Protein 17.6 H (<1.0) mg/dL
[2021-04-25] MEDS ORDERED: MELATONIN 5 MG TABLET PO PRN (21:36)
[2021-04-26 07:05] LABS: Calcium 7.9 mg/dL (8.4-10.2); Potassium 4.6 mmol/L (3.5-5.1)
[2021-04-26] MEDS: ASCORBIC ACID 500 MG TAB PO SCH (07:40)
[2021-04-26] MEDS: ZINC SULFATE 220 MG CAP PO SCH (07:40)
[2021-04-26] MEDS: CHOLECALCIFEROL 125 MCG (5000 IU) TABLET PO SCH (07:40)
[2021-04-26] MEDS: ENOXAPARIN 40 MG/0.4 ML SYRINGE SQ SCH (07:40)
[2021-04-26] MEDS: dexAMETHasone 2 MG TAB PO SCH (07:40)
[2021-04-26] MEDS: SODIUM CHLORIDE 0.9% 1,000 ML IV SCH (07:42)
--- NOTE | 2021-04-26 16:05 | P.CNPUL ---
History of Present Illness Consult date: 04/26/21 Reason for consult: dyspnea, cough Chief complaint: Dyspnea, Hypoxia, COVID-19 History of present illness: This is a 65-year-old male patient with no significant medical history, takes no prescription medications on a regular basis, who presented to the emergency department on 04/25/2021 after being diagnosed with COVID-19 last week on Monday on 04/21/2021 at a [facility]. Patient started initially with symptoms of fever, chills, body aches, which progressed to worsening cough, shortness of breath. he came into the emergency department on 04/25/2021, he was on room air, with a pulse ox of 91-92% on room air he was given monoclonal antibody infusion in the ER and discharged home. When he got home his pulse ox was at 85%, and he returned to the emergency department for reevaluation. His chest x- ray showed coarse predominantly interstitial infiltrates in the mid and lower lung curtis, with some coalescent density in the left lower lobe. He was fairly unremarkable, except for his lymphocyte count was at 0.3, his d-dimer was 1.01, INR was 0.9, sodium was 135, potassium is 4.4, chloride is 96, CO2 is 26, B1 of 26 creatinine is 1.38, lactic acid was 1.3, ferritin level was 2692, AST was 62, ALT was 31, alkaline phosphatase was 86, LDH was 1446, CRP was 17.6, pro calcitonin level was 0.26. Patient was again tested for COVID-19 for PCR testing was found to be positive. He is currently on 5 liters of oxygen with a pulse ox of 92%, he is afebrile, breathing fairly comfortably, lung sounds reveal diminished breath sounds bilaterally with some mild crackles over right mid and lower lobe. He was started on Decadron, prophylactic Lovenox, COVID-19 vitamins, and he still within the window for Remdesivir on which he will be started today. Review of Systems All systems: negative Constitutional: Reports fever, Denies chills Eyes: denies blurred vision, denies pain Ears, nose, mouth and throat: Denies headache, Denies sore throat Cardiovascular: Denies chest pain, Denies shortness of breath Respiratory: Reports cough, Reports dyspnea Gastrointestinal: Denies abdominal pain, Denies diarrhea, Denies nausea, Denies vomiting Musculoskeletal: Denies myalgias Integumentary: Denies pruritus, Denies rash Neurological: Denies numbness, Denies weakness Psychiatric: Denies anxiety, Denies depression Endocrine: Denies fatigue, Denies weight change Past Medical History Past Medical History: Cancer, Prostate Disorder Additional Past Medical History / Comment(s): PROSTATE CANCER. History of Any Multi-Drug Resistant Organisms: None Reported Past Surgical History: Hernia Repair, Prostate Surgery Additional Past Surgical History / Comment(s): colonoscopy, Antonio Inguinal Hernia's Past Anesthesia/Blood Transfusion Reactions: No Reported Reaction Additional Past Anesthesia/Blood Transfusion Reaction / Comment(s): . Past Psychological History: No Psychological Hx Reported Smoking Status: Never smoker Past Alcohol Use History: Occasional Past Drug Use History: None Reported - Past Family History Mother Family Medical History: Cancer Additional Family Medical History / Comment(s): colon & cervical cancer Father Family Medical History: Cancer Additional Family Medical History / Comment(s): bladder cancer ,emphysema Sister(s) Family Medical History: Cancer Additional Family Medical History / Comment(s): breast & rectal cancer Daughter(s) Family Medical History: Cancer Additional Family Medical History / Comment(s): cervical cancer Medications and Allergies Home Medications Medication Instructions Recorded Confirmed Type Benzonatate [Tessalon Perles] 200 mg PO Q8H PRN #15 capsule 04/25/21 04/25/21 Rx Allergies Allergy/AdvReac Type Severity Reaction Status Date / Time No Known Allergies Allergy Verified 04/25/21 20:03 Physical Exam Vitals: Vital Signs Temp Pulse Pulse Resp BP BP Pulse Ox 04/26/21 14:43 98.2 F 74 19 127/80 92 L 04/26/21 11:02 98.0 F 80 19 124/76 91 L 04/26/21 05:30 98.4 F 74 15 117/78 90 L 04/26/21 01:39 98.3 F 72 15 119/76 92 L 04/25/21 22:52 98.5 F 78 16 127/81 90 L 04/25/21 21:09 101.1 F H 95 18 123/90 92 L 04/25/21 20:00 90 18 143/84 93 L 04/25/21 19:58 102.1 F H 101 H 18 123/80 90 L 04/25/21 19:24 18 04/25/21 18:33 18 91 L 04/25/21 18:21 97.6 F 93 20 130/79 85 L Intake and Output 04/26/21 04/26/21 04/26/21 06:59 14:59 22:59 Output Total 600 Balance -600 Output: Urine 600 GENERAL EXAM: Alert, very pleasant, 65-year-old white male, on 5 L of oxygen with a pulse ox of 91-92% comfortable in no apparent distress. HEAD: Normocephalic/atraumatic. EYES: Normal reaction of pupils, equal size. Conjunctiva pink, sclera white. NOSE: Clear with pink turbinates. THROAT: No erythema or exudates. NECK: No masses, no JVD, no thyroid enlargement, no adenopathy. CHEST: No chest wall deformity. Symmetrical expansion. LUNGS: Equal air entry with breath sounds bilaterally, with some mild crackles CVS: Regular rate and rhythm, normal S1 and S2, no gallops, no murmurs, no rubs ABDOMEN: Soft, nontender. No hepatosplenomegaly, normal bowel sounds, no guarding or rigidity. EXTREMITIES: No clubbing, no edema, no cyanosis, 2+ pulses and upper and lower extremities. MUSCULOSKELETAL: Muscle strength and tone normal. SPINE: No scoliosis or deformity SKIN: No rashes CENTRAL NERVOUS SYSTEM: Alert and oriented -3. No focal deficits, tone is normal in all 4 extremities. PSYCHIATRIC: Alert and oriented -3. Appropriate affect. Intact judgment and insight. Results - Laboratory Findings CBC and BMP: 04/25/21 19:18 04/26/21 06:25 PT/INR, D-dimer PT 10.1 sec (9.0-12.0) 04/25/21 19:18 INR 0.9 (<1.2) 04/25/21 19:18 D-Dimer 1.01 mg/L FEU (<0.60) H 04/25/21 19:18 Abnormal lab findings: Abnormal Labs 04/25/21 04/25/21 04/25/21 19:18 19:18 19:18 Lymphocytes # 0.3 L D-Dimer 1.01 H Sodium 135 L Chloride 96 L BUN 26 H Creatinine 1.38 H Glucose 114 H Calcium 8.3 L Ferritin 2692.0 H AST 62 H Lactate Dehydrogenase 1446 H C-Reactive Protein 17.6 H Procalcitonin Coronavirus (PCR) 04/25/21 04/25/21 04/26/21 19:18 22:42 06:25 Lymphocytes # D-Dimer Sodium 136 L Chloride BUN Creatinine Glucose 145 H Calcium 7.9 L Ferritin AST Lactate Dehydrogenase C-Reactive Protein Procalcitonin 0.26 H Coronavirus (PCR) Detected A - Diagnostic Findings Chest x-ray: report reviewed, image reviewed Assessment and Plan Plan: Assessment: #1. Acute hypoxic respiratory failure related to acute COVID-19 related pneumonia, patient presented with 5 day history of symptoms, diagnosed with COVID-19 on an outpatient basis is [facility] on 04/21/2021. Patient was transfused with monoclonal antibody on 04/25/2021. Patient returned with worsening symptoms to the emergency department on the same day and was admitted related to acute hypoxia. Patient is a candidate for Remdesivir and we will start it today on 04/26/2021, he is not vaccinated against COVID-19 #2. Elevated d-dimer, rule out possibility of lower extremity DVT or pulmonary embolism #3. Vitamin inflammatory markers related to acute COVID-19 related pneumonia #4. Nonsmoker, lifetime nonsmoker Plan: We'll start the patient on Remdesivir per protocol Continue Decadron Continue prophylactic Lovenox, will obtain lower extremity Dopplers and CT angiogram of the chest without possibility of DVT and pulmonary embolism Continue COVID-19 vitamins We'll continue to follow his clinical course I performed a history & physical examination of the patient and discussed their management with my nurse practitioner, Iris Hale. I reviewed the nurse practitioner's note and agree with the documented findings and plan of care. Lung sounds are positive for mild crackles throughout the lung curtis. The findings and the impression was discussed with the patient. I attest to the documentation by the nurse practitioner. Time with Patient: Greater than 30
[2021-04-26] MEDS ORDERED: REMDESIVIR 200 MG in SODIUM CHLORIDE 0.9% 250 ML IVPB ONE (17:00)
--- NOTE | 2021-04-26 17:26 | US ---
EXAMINATION TYPE: US venous doppler duplex LE DATE OF EXAM: 04/26/2021 4:52 PM COMPARISON: NONE CLINICAL HISTORY: elevated d-dimer. Covid Patient. SIDE PERFORMED: Bilateral TECHNIQUE: The lower extremity deep venous system is examined utilizing real time linear array sonog chris with graded compression, doppler sonography and color-flow sonography. VESSELS IMAGED: Common Femoral Vein Deep Femoral Vein Greater Saphenous Vein * Femoral Vein Popliteal Vein Small Saphenous Vein * Proximal Calf Veins (* superficial vessels) Right Leg: Thick, echogenic, mobile blood is noted (Rouleaux Effect) but deep veins compress and are patent. Left Leg: Thick, echogenic, mobile blood is noted (Rouleaux Effect), and greatly seen in left leg ve ins compared to right leg, but deep veins compress and are patent. IMPRESSION: No DVT of the bilateral extremity. Rouleaux flow noted and can be seen with slow blood flow.
--- NOTE | 2021-04-26 17:49 | CT ---
EXAMINATION TYPE: CT chest angio for PE DATE OF EXAM: 04/26/2021 COMPARISON: Radiograph 04/25/2021 HISTORY: Covid and shortness of breath. Consent for PE. CT DLP: 325 mGycm Automated exposure control for dose reduction was used. CONTRAST: CT Chest for pulmonary embolism performed with with IV Contrast, patient injected with 100 mL of Isov ue 370. MIPS reformats were provided and reviewed. FINDINGS: LUNGS: There are bilateral diffuse marked patchy ground glass opacities. There is no pleural effusi on or pneumothorax seen. The tracheobronchial tree is patent. MEDIASTINUM: There is satisfactory enhancement of the pulmonary artery and its branches, there is no CT evidence for pulmonary embolism. There are no greater than 1 cm hilar or mediastinal lymph nodes. No pericardial effusion is seen. OTHER: No additional significant abnormality is seen. IMPRESSION: Findings compatible with atypical pneumonia including Covid. No acute PE.
--- NOTE | 2021-04-26 18:48 | P.PN ---
<Christiano Steinberg - Last Filed: 04/26/21 18:39> Subjective Progress Note Date: 04/26/21 Hospital course: Patient is a very pleasant 65-year-old male with no known reported past medical history. He presented to the emergency department on 04/25/21 with reports of increased shortness of breath, worsening fatigue and cough status post diagnosis with Covid 19 virus infection on 04/21/21 at [facility]. He underwent full workup in the emergency department with EKG revealing normal sinus rhythm and 94 bpm. Chest x-ray consistent with multifocal pneumonia. Laboratory findings re vealed CBC to be unremarkable, BMP showing slightly elevated renal function with BUN of 26, creatinine 1.38, and GFR of 54 with baseline creatinine of 1.2. Inflammatory markers elevated d-dimer 1.01, LDH of 1446 and CRP of 17.6. Ferritin was also elevated at 2692 and pro-calcitonin slightly elevated at 0.26. Upon arrival to the emergency department patient was found to be hypoxic with SpO2 of 85% on room air requiring oxygen supplementation. Patient currently on 5 L O2 maintaining SpO2 of 90%. Patient is admitted under our services with consultation to pulmonology. Physical exam: Patient seen and fully evaluated at the bedside this morning. He is currently on 5 L O2 via nasal cannula maintaining SpO2 of 90%. Respirations even, regular, and unlabored with no accessory muscle usage at this time. Patient reports he is beginning to be able to take deeper breaths but reports continued cough and significant shortness of breath with any exertion. Vital signs reviewed and stable. General: Nontoxic, no distress and appears stated age. Derm: Skin warm and dry, normal coloration for ethnicity. Head: Atraumatic, normocephalic and symmetric. Eyes: EOMs intact, no lid lag, and anicteric sclera Mouth: no lip lesions, mucus membranes moist Cardiovascular: regular rate and rhythm with normal S1S2, no murmur, positive posterior tibial pulses bilaterally, and cap refill < 2 seconds. Lungs: Respirations even, regular, and unlabored on 5 L O2 via nasal cannula. Lungs with diffuse crackles bilaterally, no wheezes, rhonchi, or rales. Abdominal: soft, nontender to palpation, no guarding, no appreciable organomegaly Ext: ROM intact. No gross muscle atrophy, no edema, no contractures Neuro: Speech clear, face symmetrical and CN II-XII grossly intact with no noted focal neuro deficits Psych: Alert and oriented to person, place, time, and situation. Appropriate and pleasant affect. Assessment and Plan of Care: Acute respiratory failure with hypoxia secondary to COVID 19 pneumonia -Oxygenation to be administered and titrated as needed to maintain SPO2 equal to or greater than 90% -Telemetry monitoring. -Continue trending inflammatory markers -Encourage Incentive Spirometry 10-15x hourly while awake -Steroids: Decadron 6 mg daily -Continue vitamin C, Vitamin D, and Zinc. -Pulmonology following, appreciate further recommendations. -DVT prophylaxis with Lovenox. -Strict Droplet plus Contact precautions Acute kidney injury, resolved with IV fluids Elevated d-dimer -CTA negative for acute PE showing findings compatible with atypical pneumonia -Bilateral lower extremity Dopplers negative for DVTs CODE STATUS: Full Code DVT prophylaxis: Lovenox Discussed with: Patient and RN Anticipated discharge date: Clinical course to determine Anticipated discharge place: Home A total of 45 minutes was spent on the care of this complex patient more than 50% of the time was spent in counseling and care coordination. Objective - Vital Signs Vital signs: Vital Signs Temp 98.4 F 04/26/21 05:30 Pulse 74 04/26/21 05:30 Resp 15 04/26/21 05:30 BP 117/78 04/26/21 05:30 Pulse Ox 90 L 04/26/21 05:30 Intake & Output 04/25/21 04/26/21 04/26/21 18:59 06:59 18:59 Output Total 600 Balance -600 Weight 77.111 kg 77.111 kg Output: Urine 600 - Labs CBC & Chem 7: 04/25/21 19:18 04/26/21 06:25 Labs: Abnormal Lab Results - Last 24 Hours (Table) 04/25/21 04/25/21 04/25/21 Range/Units 19:18 19:18 19:18 Lymphocytes # 0.3 L (1.0-4.8) k/uL D-Dimer 1.01 H (<0.60) mg/L FEU Sodium 135 L (137-145) mmol/L Chloride 96 L (98-107) mmol/L BUN 26 H (9-20) mg/dL Creatinine 1.38 H (0.66-1.25) mg/dL Glucose 114 H (74-99) mg/dL Calcium 8.3 L (8.4-10.2) mg/dL Ferritin 2692.0 H (22.0-322.0) ng/mL AST 62 H (17-59) U/L Lactate Dehydrogenase 1446 H (313-618) U/L C-Reactive Protein 17.6 H (<1.0) mg/dL Procalcitonin (0.02-0.09) ng/mL Coronavirus (PCR) (Not Detectd) 04/25/21 04/25/21 04/26/21 Range/Units 19:18 22:42 06:25 Lymphocytes # (1.0-4.8) k/uL D-Dimer (<0.60) mg/L FEU Sodium 136 L (137-145) mmol/L Chloride (98-107) mmol/L BUN (9-20) mg/dL Creatinine (0.66-1.25) mg/dL Glucose 145 H (74-99) mg/dL Calcium 7.9 L (8.4-10.2) mg/dL Ferritin (22.0-322.0) ng/mL AST (17-59) U/L Lactate Dehydrogenase (313-618) U/L C-Reactive Protein (<1.0) mg/dL Procalcitonin 0.26 H (0.02-0.09) ng/mL Coronavirus (PCR) Detected A (Not Detectd) <Mishel Bond A - Last Filed: 04/26/21 19:59> Subjective Christiano Steinberg NP rendered care for this patient independently, reviewed the findings and plan as documented in the note above. I did not physically speak with or examine the patient on this date. Objective - Vital Signs Vital signs: Vital Signs Temp 98.5 F 04/26/21 18:23 Pulse 77 04/26/21 18:23 Resp 22 04/26/21 18:23 BP 132/83 04/26/21 18:23 Pulse Ox 96 04/26/21 18:23 Intake & Output 04/26/21 04/26/21 04/27/21 06:59 18:59 06:59 Output Total 600 Balance -600 Weight 77.111 kg Output: Urine 600 Other: # Voids 2 # Bowel Movements 1 - Labs CBC & Chem 7: 04/25/21 19:18 04/26/21 06:25 Labs: Abnormal Lab Results - Last 24 Hours (Table) 04/25/21 04/25/21 04/25/21 Range/Units 19:18 19:18 19:18 D-Dimer 1.01 H (<0.60) mg/L FEU Sodium 135 L (137-145) mmol/L Chloride 96 L (98-107) mmol/L BUN 26 H (9-20) mg/dL Creatinine 1.38 H (0.66-1.25) mg/dL Glucose 114 H (74-99) mg/dL Calcium 8.3 L (8.4-10.2) mg/dL Ferritin 2692.0 H (22.0-322.0) ng/mL AST 62 H (17-59) U/L Lactate Dehydrogenase 1446 H (313-618) U/L C-Reactive Protein 17.6 H (<1.0) mg/dL Procalcitonin 0.26 H (0.02-0.09) ng/mL Coronavirus (PCR) (Not Detectd) 04/25/21 04/26/21 Range/Units 22:42 06:25 D-Dimer (<0.60) mg/L FEU Sodium 136 L (137-145) mmol/L Chloride (98-107) mmol/L BUN (9-20) mg/dL Creatinine (0.66-1.25) mg/dL Glucose 145 H (74-99) mg/dL Calcium 7.9 L (8.4-10.2) mg/dL Ferritin (22.0-322.0) ng/mL AST (17-59) U/L Lactate Dehydrogenase (313-618) U/L C-Reactive Protein (<1.0) mg/dL Procalcitonin (0.02-0.09) ng/mL Coronavirus (PCR) Detected A (Not Detectd)
[2021-04-27] MEDS: dexAMETHasone 2 MG TAB PO SCH (07:47)
[2021-04-27] MEDS: ZINC SULFATE 220 MG CAP PO SCH (07:47)
[2021-04-27] MEDS: CHOLECALCIFEROL 125 MCG (5000 IU) TABLET PO SCH (07:47)
[2021-04-27] MEDS: ASCORBIC ACID 500 MG TAB PO SCH (07:47)
[2021-04-27] MEDS: ENOXAPARIN 40 MG/0.4 ML SYRINGE SQ SCH (07:48)
[2021-04-27] MEDS: SODIUM CHLORIDE 0.9% 1,000 ML IV SCH ×2 (07:49→11:50)
--- NOTE | 2021-04-27 08:52 | P.PN ---
Subjective Progress Note Date: 04/27/21 Hospital course: Patient is a very pleasant 65-year-old male with no known reported past medical history. He presented to the emergency department on 04/25/21 with reports of increased shortness of breath, worsening fatigue and cough status post diagnosis with Covid 19 virus infection on 04/21/21 at [facility]. He underwent full workup in the emergency department with EKG revealing normal sinus rhythm and 94 bpm. Chest x-ray consistent with multifocal pneumonia. Laboratory findings revealed CBC to be unremarkable, BMP showing slightly elevated renal function with BUN of 26, creatinine 1.38, and GFR of 54 with baseline creatinine of 1.2. Inflammatory markers elevated d-dimer 1.01, LDH of 1446 and CRP of 17.6. Ferritin was also elevated at 2692 and pro-calcitonin slightly elevated at 0.26. Upon arrival to the emergency department patient was found to be hypoxic with SpO2 of 85% on room air requiring oxygen supplementation. Patient currently on 5 L O2 maintaining SpO2 of 90%. Patient is admitted under our services with consultation to pulmonology. Physical exam: Patient seen and fully evaluated at the bedside this morning. His oxygen needs increased overnight, patient now on 10 L high flow nasal cannula with SpO2 of 94%. He was started on Remdesivir yesterday afternoon and today will be day 2 of 5. He reports continued shortness of breath and dry cough. Inflammatory markers remain elevated, but improved with d-dimer 0.86, LDH 506, and CRP 5.10. Patient reports he has been trying to lay prone in bed, but states he is doing better lying on his sides. Patient encouraged prone positioning when able as well as use of incentive spirometry. Patient educated on importance of not overexerting himself and if he needs to get up, call for assistance so that his pulse oximetry can be monitored by medical staff. Patient to continue treatment with Remdesivir, Decadron, zinc, vitamin C, vitamin D, and Lovenox. Vital signs reviewed and stable. General: Nontoxic, no distress and appears stated age. Derm: Skin warm and dry, normal coloration for ethnicity. Head: Atraumatic, normocephalic and symmetric. Eyes: EOMs intact, no lid lag, and anicteric sclera Mouth: no lip lesions, mucus membranes moist Cardiovascular: regular rate and rhythm with normal S1S2, no murmur, positive posterior tibial pulses bilaterally, and cap refill < 2 seconds. Lungs: Respirations even, regular, and unlabored on 10 L O2 via nasal cannula. Lungs with diffuse crackles bilaterally, no wheezes, rhonchi, or rales. Abdominal: soft, nontender to palpation, no guarding, no appreciable organomegaly Ext: ROM intact. No gross muscle atrophy, no edema, no contractures Neuro: Speech clear, face symmetrical and CN II-XII grossly intact with no noted focal neuro deficits Psych: Alert and oriented to person, place, time, and situation. Appropriate and pleasant affect. Assessment and Plan of Care: Acute respiratory failure with hypoxia secondary to COVID 19 pneumonia -Oxygenation to be administered and titrated as needed to maintain SPO2 equal to or greater than 90% -Telemetry monitoring. -Continue trending inflammatory markers -Encourage Incentive Spirometry 10-15x hourly while awake -Steroids: Decadron 6 mg daily -Continue vitamin C, Vitamin D, and Zinc. -Pulmonology following, appreciate further recommendations. -DVT prophylaxis with Lovenox. -Strict Droplet plus Contact precautions -Remdesivir day 06/19 Acute kidney injury, resolved with IV fluids Elevated d-dimer -CTA negative for acute PE showing findings compatible with atypical pneumonia -Bilateral lower extremity Dopplers negative for DVTs CODE STATUS: Full Code DVT prophylaxis: Lovenox Discussed with: Patient and RN Anticipated discharge date: Clinical course to determine Anticipated discharge place: Home A total of 45 minutes was spent on the care of this complex patient more than 50% of the time was spent in counseling and care coordination. Objective - Vital Signs Vital signs: Vital Signs Temp 97.9 F 04/27/21 06:20 Pulse 68 04/27/21 06:20 Resp 17 04/27/21 06:20 BP 122/79 04/27/21 06:20 Pulse Ox 94 L 04/27/21 06:20 Intake & Output 04/26/21 04/27/21 04/27/21 18:59 06:59 18:59 Intake Total 1300 Output Total 500 Balance 800 Intake: Intake, IV Titration 900 Amount Sodium Chloride 0.9% 1, 900 000 ml @ 75 mls/hr IV . [id number] LISANDRO Rx#:[id number] Oral 400 Output: Urine 500 Other: Voiding Method Toilet Urinal # Voids 2 1 # Bowel Movements 1 1 - Labs CBC & Chem 7: 12/14/21 06:08 04/26/21 06:25 Labs: Abnormal Lab Results - Last 24 Hours (Table) 04/25/21 04/25/21 Range/Units 19:18 19:18 Ferritin 2692.0 H (22.0-322.0) ng/mL Procalcitonin 0.26 H (0.02-0.09) ng/mL
[2021-04-27 09:06] LABS: HCT 42.8 % (39.0-53.0); HGB 14.3 gm/dL (13.0-17.5); MCH 32.2 pg (25.0-35.0); MCHC 33.5 g/dL (31.0-37.0); MCV 96.3 fL (80.0-100.0); Mean Platelet Volume 8.4; Platelet Count 266 k/uL (150-450); RBC 4.44 m/uL (4.30-5.90); RDW 13.1 % (11.5-15.5); WBC 9.7 k/uL (3.8-10.6)
[2021-04-27 11:27] LABS: C Reactive Protein 5.1 mg/dL (0.00-0.80)
--- NOTE | 2021-04-27 13:37 | P.PN ---
Subjective Progress Note Date: 04/27/21 Principal diagnosis: COVID-19 pneumonia This is a 65-year-old male patient with no significant medical history, takes no prescription medications on a regular basis, who presented to the emergency department on 04/25/2021 after being diagnosed with COVID-19 last week on Monday on 04/21/2021 at a [facility]. Patient started initially with symptoms of fever, chills, body aches, which progressed to worsening cough, shortness of breath. he came into the emergency department on 04/25/2021, he was on room air, with a pulse ox of 91-92% on room air he was given monoclonal antibody infusion in the ER and discharged home. When he got home his pulse ox was at 85%, and he returned to the emergency department for reevaluation. His chest x- ray showed coarse predominantly interstitial infiltrates in the mid and lower lung curtis, with some coalescent density in the left lower lobe. He was fairly unremarkable, except for his lymphocyte count was at 0.3, his d-dimer was 1.01, INR was 0.9, sodium was 135, potassium is 4.4, chloride is 96, CO2 is 26, B1 of 26 creatinine is 1.38, lactic acid was 1.3, ferritin level was 2692, AST was 62, ALT was 31, alkaline phosphatase was 86, LDH was 1446, CRP was 17.6, pro calcitonin level was 0.26. Patient was again tested for COVID-19 for PCR testing was found to be positive. He is currently on 5 liters of oxygen with a pulse ox of 92%, he is afebrile, breathing fairly comfortably, lung sounds reveal diminished breath sounds bilaterally with some mild crackles over right mid and lower lobe. He was started on Decadron, prophylactic Lovenox, COVID-19 vitamins, and he still within the window for Remdesivir on which he will be started today. The patient is seen today 04/27/2021 in follow-up on the regular medical floor. He is currently resting on his right side in bed. His breathing is about the same today compared to yesterday. No improvement. No worsening. He is still on 8 L high flow nasal cannula to maintain O2 saturation 90%. He is 0.9 normal saline at 75 ML's per hour. Dopplers of the lower extremity revealed no evidence of DVT. CT angiogram ruled out pulmonary embolism. There are findings compatible with atypical pneumonias including CoVID. Patchy groundglass opacities. Count 9.7. Hemoglobin 14.3. D-dimer 0.86. LDH 506. C-reactive protein 5.10. He is continued on Remdesivir, Lovenox, Decadron, vitamin supplements. Objective - Vital Signs Vital signs: Vital Signs Temp 98.4 F 04/27/21 09:35 Pulse 66 04/27/21 09:35 Resp 18 04/27/21 09:35 BP 118/63 04/27/21 09:35 Pulse Ox 94 L 04/27/21 09:35 Intake & Output 04/26/21 04/27/21 04/27/21 18:59 06:59 18:59 Intake Total 1300 Output Total 500 Balance 800 Intake: Intake, IV Titration 900 Amount Sodium Chloride 0.9% 1, 900 000 ml @ 75 mls/hr IV . [id number] LISANDRO Rx#:[id number] Oral 400 Output: Urine 500 Other: Voiding Method Toilet Toilet Urinal Urinal # Voids 2 1 # Bowel Movements 1 1 - Exam GENERAL EXAM: Alert, very pleasant, 65-year-old male patient, on 13 L of oxygen with a pulse ox of 94% comfortable in no apparent distress. HEAD: Normocephalic/atraumatic. EYES: Normal reaction of pupils, equal size. Conjunctiva pink, sclera white. NOSE: Clear with pink turbinates. THROAT: No erythema or exudates. NECK: No masses, no JVD, no thyroid enlargement, no adenopathy. CHEST: No chest wall deformity. Symmetrical expansion. LUNGS: Equal air entry with breath sounds bilaterally, with some coarse crackles in the posterior bases CVS: Regular rate and rhythm, normal S1 and S2, no gallops, no murmurs, no rubs ABDOMEN: Soft, nontender. No hepatosplenomegaly, normal bowel sounds, no guarding or rigidity. EXTREMITIES: No clubbing, no edema, no cyanosis, 2+ pulses and upper and lower extremities. MUSCULOSKELETAL: Muscle strength and tone normal. SPINE: No scoliosis or deformity SKIN: No rashes CENTRAL NERVOUS SYSTEM: No focal deficits, tone is normal in all 4 extremities. PSYCHIATRIC: Alert and oriented -3. Appropriate affect. Intact judgment and insight. - Labs CBC & Chem 7: 12/14/21 06:08 04/26/21 06:25 Labs: Abnormal Lab Results - Last 24 Hours (Table) 04/27/21 04/27/21 Range/Units 06:08 09:07 D-Dimer 0.86 H (<0.60) mg/L FEU Lactate Dehydrogenase 506 H (120-246) U/L C-Reactive Protein 5.10 H (0.00-0.80) mg/dL Assessment and Plan Assessment: 1 Acute hypoxic respiratory failure related to acute COVID-19 related pneumonia, patient presented with 5 day history of symptoms, diagnosed with COVID-19 on an outpatient basis is [facility] on 04/21/2021. Patient was transfused with monoclonal antibody on 04/25/2021. Patient returned with worsening symptoms to the emergency department on the same day and was admitted related to acute hypoxia. Patient is a candidate for Remdesivir and we will start it today on 04/26/2021, he is not vaccinated against COVID-19 2 Elevated d-dimer, rule out possibility of lower extremity DVT or pulmonary embolism 3 Vitamin inflammatory markers related to acute COVID-19 related pneumonia 4 Nonsmoker, lifetime nonsmoker Plan: The patient was seen and evaluated Currently on 8 L high flow nasal cannula Doing about the same compared to yesterday Normal saline at 75 ML's per hour Continued on Remdesivir, day #2 Continued on Lovenox, Decadron, vitamin supplements We'll titrate the FiO2 as tolerated We'll continue to follow I, the cosigning physician, performed a history & physical examination of the patient. Lungs sounds with coarse crackles in the bilateral bases. Maintaining good O2 saturations in the 90s on 8 L high flow nasal cannula. I discussed the assessment and plan of care with my nurse practitioner, Venice Lucas. I attest to the above note as dictated by her.
[2021-04-27 14:47] LABS: African American GFR (CKD) 92.1 (60.0-200.0); Albumin 3.3 g/dL (3.8-4.9); Albumin/Globulin Ratio 1.5 (1.60-3.17); Anion Gap 15.8 mmol/L (10.00-18.00); BUN/Creat Ratio 18.66 Ratio (12.00-20.00); Blood Urea Nitrogen 18.6 mg/dL (9.0-27.0); Calcium 7.9 mg/dL (8.7-10.3); Carbon Dioxide 20.7 mmol/L (20.0-27.5); Globulin 2.2 g/dL (1.6-3.3); Magnesium 2.6 mg/dL (1.5-2.4); Non-African American GFR(CKD) 79.5 (60.0-200.0); Potassium 4.4 mmol/L (3.5-5.5); Total Bilirubin 0.3 mg/dL (0.30-1.20); Total Protein 5.6 g/dL (6.2-8.2)
[2021-04-27] MEDS: REMDESIVIR 100 MG in SODIUM CHLORIDE 0.9% 250 ML IVPB SCH (17:45)
[2021-04-27] MEDS: ALBUTEROL HFA INHALER INHALATION PRN (21:17)
[2021-04-28] MEDS: ALBUTEROL HFA INHALER INHALATION PRN ×2 (08:03→12:02)
[2021-04-28] MEDS: ZINC SULFATE 220 MG CAP PO SCH (08:29)
[2021-04-28] MEDS: dexAMETHasone 2 MG TAB PO SCH (08:29)
[2021-04-28] MEDS: ENOXAPARIN 40 MG/0.4 ML SYRINGE SQ SCH (08:29)
[2021-04-28] MEDS: CHOLECALCIFEROL 125 MCG (5000 IU) TABLET PO SCH (08:29)
[2021-04-28] MEDS: ASCORBIC ACID 500 MG TAB PO SCH (08:29)
[2021-04-28 09:28] LABS: HCT 46.3 % (39.6-50.0); HGB 14.6 g/dL (13.0-17.0); MCH 30.6 pg (27.0-32.0); MCHC 31.5 g/dL (32.0-37.0); MCV 97.1 fL (80.0-97.0); Mean Platelet Volume 9.9 fL (9.5-12.2); Platelet Count 325 X 10*3/uL (140-440); RBC 4.77 X 10*6/uL (4.40-5.60); RDW 12.8 % (11.5-14.5); WBC 12.26 X 10*3/uL (4.50-10.00)
[2021-04-28 10:45] LABS: C Reactive Protein 2.3 mg/dL (0.00-0.80); Magnesium 2.7 mg/dL (1.5-2.4)
[2021-04-28 11:02] LABS: African American GFR (CKD) 91.8 (60.0-200.0); Albumin 3.6 g/dL (3.8-4.9); Albumin/Globulin Ratio 1.5 (1.60-3.17); Anion Gap 10.7 mmol/L (10.00-18.00); BUN/Creat Ratio 19.7 Ratio (12.00-20.00); Blood Urea Nitrogen 19.7 mg/dL (9.0-27.0); Calcium 8.5 mg/dL (8.7-10.3); Carbon Dioxide 25.3 mmol/L (20.0-27.5); Globulin 2.4 g/dL (1.6-3.3); Non-African American GFR(CKD) 79.2 (60.0-200.0); Potassium 4.7 mmol/L (3.5-5.5); Total Bilirubin 0.5 mg/dL (0.30-1.20)
--- NOTE | 2021-04-28 15:48 | P.PN ---
Subjective Progress Note Date: 04/28/21 Hospital course: Patient is a very pleasant 65-year-old male with no known reported past medical history. He presented to the emergency department on 04/25/21 with reports of increased shortness of breath, worsening fatigue and cough status post diagnosis with Covid 19 virus infection on 04/21/21 at [facility]. He underwent full workup in the emergency department with EKG revealing normal sinus rhythm and 94 bpm. Chest x-ray consistent with multifocal pneumonia. Laboratory findings revealed CBC to be unremarkable, BMP showing slightly elevated renal function with BUN of 26, creatinine 1.38, and GFR of 54 with baseline creatinine of 1.2. Inflammatory markers elevated d-dimer 1.01, LDH of 1446 and CRP of 17.6. Ferritin was also elevated at 2692 and pro-calcitonin slightly elevated at 0.26. Upon arrival to the emergency department patient was found to be hypoxic with SpO2 of 85% on room air requiring oxygen supplementation. Patient currently on 5 L O2 maintaining SpO2 of 90%. Patient is admitted under our services with consultation to pulmonology. Physical exam: Patient seen and fully evaluated at the bedside this morning. His oxygen needs increased to 15 L high flow nasal cannula overnight this morning patient was sitting up in chair and appeared more comfortable. His SpO2 was 98% on 15 L and oxygen turned down to 11 L at this time maintaining SpO2 of 93%. Patient is on day 3 of 5 of his Remdesivir. He continues to report shortness of breath with any exertion but states currently feeling comfortable at rest. Patient continues with a dry nonproductive cough. He denies experiencing any headache, lightheadedness, dizziness, chest pain or palpitations, nausea, vomiting, or experiencing any numbness/tingling/weakness/swelling in his extremities. Inflammatory markers continue to be elevated with d-dimer 1.04, LDH 535, and CRP of 2.30. Patient to continue treatment with Remdesivir, Decadron, zinc, vitamin C, vitamin D, and Lovenox. Vital signs reviewed and stable. General: Nontoxic, no distress and appears stated age. Derm: Skin warm and dry, normal coloration for ethnicity. Head: Atraumatic, normocephalic and symmetric. Eyes: EOMs intact, no lid lag, and anicteric sclera Mouth: no lip lesions, mucus membranes moist Cardiovascular: regular rate and rhythm with normal S1S2, no murmur, positive posterior tibial pulses bilaterally, and cap refill < 2 seconds. Lungs: Respirations even, regular, and unlabored on 11 L O2 via nasal cannula. Lungs with diffuse crackles bilaterally to mid and lower lung, no wheezes, rho nchi, or rales. Abdominal: soft, nontender to palpation, no guarding, no appreciable organomegaly Ext: ROM intact. No gross muscle atrophy, no edema, no contractures Neuro: Speech clear, face symmetrical and CN II-XII grossly intact with no noted focal neuro deficits Psych: Alert and oriented to person, place, time, and situation. Appropriate and pleasant affect. Assessment and Plan of Care: Acute respiratory failure with hypoxia secondary to COVID 19 pneumonia -Oxygenation to be administered and titrated as needed to maintain SPO2 equal to or greater than 90% -Telemetry monitoring. -Continue trending inflammatory markers -Encourage Incentive Spirometry 10-15x hourly while awake -Steroids: Decadron 6 mg daily. -Continue vitamin C, Vitamin D, and Zinc. -Pulmonology following, appreciate further recommendations. -DVT prophylaxis with Lovenox. -Strict Droplet plus Contact precautions -Remdesivir day 07/17 Acute kidney injury, resolved with IV fluids Elevated d-dimer -CTA negative for acute PE showing findings compatible with atypical pneumonia -Bilateral lower extremity Dopplers negative for DVTs CODE STATUS: Full Code DVT prophylaxis: Lovenox Discussed with: Patient and RN Anticipated discharge date: Clinical course to determine Anticipated discharge place: Home A total of 45 minutes was spent on the care of this complex patient more than 50% of the time was spent in counseling and care coordination. Objective - Vital Signs Vital signs: Vital Signs Temp 97.8 F 04/28/21 09:17 Pulse 67 04/28/21 09:17 Resp 17 04/28/21 09:17 BP 114/70 04/28/21 09:17 Pulse Ox 93 L 04/28/21 09:17 Intake & Output 04/27/21 04/28/21 04/28/21 18:59 06:59 18:59 Output Total 450 Balance -450 Output: Urine 450 Other: Voiding Method Toilet Toilet Toilet Urinal Urinal Urinal # Voids 2 - Labs CBC & Chem 7: 04/28/21 06:13 04/28/21 06:13 Labs: Abnormal Lab Results - Last 24 Hours (Table) 04/27/21 04/28/21 04/28/21 Range/Units 06:08 06:13 06:13 WBC 12.26 H (4.50-10.00) X 10*3/uL MCV 97.1 H (80.0-97.0) fL MCHC 31.5 L (32.0-37.0) g/dL D-Dimer 1.04 H (<0.60) mg/L FEU Glucose 131 H (70-110) mg/dL Calcium 7.9 L (8.7-10.3) mg/dL Magnesium 2.6 H (1.5-2.4) mg/dL AST 58 H (14-35) U/L ALT (10-49) U/L Lactate Dehydrogenase 506 H (120-246) U/L C-Reactive Protein (0.00-0.80) mg/dL Total Protein 5.6 L (6.2-8.2) g/dL Albumin 3.3 L (3.8-4.9) g/dL Albumin/Globulin Ratio 1.50 L (1.60-3.17) g/dL 04/28/21 Range/Units 06:13 WBC (4.50-10.00) X 10*3/uL MCV (80.0-97.0) fL MCHC (32.0-37.0) g/dL D-Dimer (<0.60) mg/L FEU Glucose (70-110) mg/dL Calcium 8.5 L (8.7-10.3) mg/dL Magnesium 2.7 H (1.5-2.4) mg/dL AST 74 H (14-35) U/L ALT 68 H (10-49) U/L Lactate Dehydrogenase 535 H (120-246) U/L C-Reactive Protein 2.30 H (0.00-0.80) mg/dL Total Protein 6.0 L (6.2-8.2) g/dL Albumin 3.6 L (3.8-4.9) g/dL Albumin/Globulin Ratio 1.50 L (1.60-3.17) g/dL
[2021-04-28] MEDS: REMDESIVIR 100 MG in SODIUM CHLORIDE 0.9% 250 ML IVPB SCH (16:04)
--- NOTE | 2021-04-28 16:13 | P.PN ---
Subjective Progress Note Date: 04/28/21 This is a 65-year-old male patient with no significant medical history, takes no prescription medications on a regular basis, who presented to the emergency department on 04/25/2021 after being diagnosed with COVID-19 last week on Monday on 04/21/2021 at a [facility]. Patient started initially with symptoms of fever, chills, body aches, which progressed to worsening cough, shortness of breath. he came into the emergency department on 04/25/2021, he was on room air, with a pulse ox of 91-92% on room air he was given monoclonal antibody infusion in the ER and discharged home. When he got home his pulse ox was at 85%, and he returned to the emergency department for reevaluation. His chest x- ray showed coarse predominantly interstitial infiltrates in the mid and lower lung curtis, with some coalescent density in the left lower lobe. He was fairly unremarkable, except for his lymphocyte count was at 0.3, his d-dimer was 1.01, INR was 0.9, sodium was 135, potassium is 4.4, chloride is 96, CO2 is 26, B1 of 26 creatinine is 1.38, lactic acid was 1.3, ferritin level was 2692, AST was 62, ALT was 31, alkaline phosphatase was 86, LDH was 1446, CRP was 17.6, pro calcitonin level was 0.26. Patient was again tested for COVID-19 for PCR testing was found to be positive. He is currently on 5 liters of oxygen with a pulse ox of 92%, he is afebrile, breathing fairly comfortably, lung sounds reveal diminished breath sounds bilaterally with some mild crackles over right mid and lower lobe. He was started on Decadron, prophylactic Lovenox, COVID-19 vitamins, and he still within the window for Remdesivir on which he will be started today. The patient is seen today 04/27/2021 in follow-up on the regular medical floor. He is currently resting on his right side in bed. His breathing is about the same today compared to yesterday. No improvement. No worsening. He is still on 8 L high flow nasal cannula to maintain O2 saturation 90%. He is 0.9 normal saline at 75 ML's per hour. Dopplers of the lower extremity revealed no evidence of DVT. CT angiogram ruled out pulmonary embolism. There are findings compatible with atypical pneumonias including CoVID. Patchy groundglass opacities. Count 9.7. Hemoglobin 14.3. D-dimer 0.86. LDH 506. C-reactive protein 5.10. He is continued on Remdesivir, Lovenox, Decadron, vitamin supplements. On 04/28/2021 patient seen in follow-up on medical surgical floor, he is currently on 8 L of oxygen pulse ox 94%, his breathing, with, FiO2 has been turned out to 7 L, he is up in the chair, he states he feels a little better, occasional cough, no phlegm production, no complaint of chest discomfort. CTA of the chest was negative for pulmonary embolism, lower extremity Dopplers were negative for DVT, today's Remdesivir day 3 of treatment and he is on Decadron, prophylactic Lovenox, COVID-19 vitamins, no acute events overnight. Objective - Vital Signs Vital signs: Vital Signs Temp 97.5 F L 04/28/21 13:20 Pulse 74 04/28/21 13:20 Resp 18 04/28/21 13:20 BP 125/75 04/28/21 13:20 Pulse Ox 94 L 04/28/21 13:20 Intake & Output 04/27/21 04/28/21 04/28/21 18:59 06:59 18:59 Output Total 450 Balance -450 Output: Urine 450 Other: Voiding Method Toilet Toilet Toilet Urinal Urinal Urinal # Voids 2 - Exam GENERAL EXAM: Alert, very pleasant, 65-year-old white male, on 8 L of oxygen with a pulse ox of 91-92% comfortable in no apparent distress. HEAD: Normocephalic/atraumatic. EYES: Normal reaction of pupils, equal size. Conjunctiva pink, sclera white. NOSE: Clear with pink turbinates. THROAT: No erythema or exudates. NECK: No masses, no JVD, no thyroid enlargement, no adenopathy. CHEST: No chest wall deformity. Symmetrical expansion. LUNGS: Equal air entry with breath sounds bilaterally, with some mild crackles CVS: Regular rate and rhythm, normal S1 and S2, no gallops, no murmurs, no rubs ABDOMEN: Soft, nontender. No hepatosplenomegaly, normal bowel sounds, no guardi ng or rigidity. EXTREMITIES: No clubbing, no edema, no cyanosis, 2+ pulses and upper and lower extremities. MUSCULOSKELETAL: Muscle strength and tone normal. SPINE: No scoliosis or deformity SKIN: No rashes CENTRAL NERVOUS SYSTEM: Alert and oriented -3. No focal deficits, tone is normal in all 4 extremities. PSYCHIATRIC: Alert and oriented -3. Appropriate affect. Intact judgment and insight. - Labs CBC & Chem 7: 04/28/21 06:13 04/28/21 06:13 Labs: Abnormal Lab Results - Last 24 Hours (Table) 04/28/21 04/28/21 04/28/21 Range/Units 06:13 06:13 06:13 WBC 12.26 H (4.50-10.00) X 10*3/uL MCV 97.1 H (80.0-97.0) fL MCHC 31.5 L (32.0-37.0) g/dL D-Dimer 1.04 H (<0.60) mg/L FEU Calcium 8.5 L (8.7-10.3) mg/dL Magnesium 2.7 H (1.5-2.4) mg/dL AST 74 H (14-35) U/L ALT 68 H (10-49) U/L Lactate Dehydrogenase 535 H (120-246) U/L C-Reactive Protein 2.30 H (0.00-0.80) mg/dL Total Protein 6.0 L (6.2-8.2) g/dL Albumin 3.6 L (3.8-4.9) g/dL Albumin/Globulin Ratio 1.50 L (1.60-3.17) g/dL Assessment and Plan Plan: Assessment: #1. Acute hypoxic respiratory failure related to acute COVID-19 related pneumonia, patient presented with 5 day history of symptoms, diagnosed with COVID-19 on an outpatient basis is [facility]. Patient was transfused with monoclonal antibody on 04/25/2021. Patient returned with worsening symptoms to the emergency department on the same day and was admitted related to acute hypoxia. Patient is a candidate for Remdesivir and we will start it today on 04/26/2021, he is not vaccinated against COVID-19. Remdesivir was started on 04/26/2021 #2. Elevated d-dimer, rule out possibility of lower extremity DVT or pulmonary embolism #3. Vitamin inflammatory markers related to acute COVID-19 related pneumonia #4. Nonsmoker, lifetime nonsmoker Plan: Continue Remdesivir, today is day 3 of treatment Continue Decadron Continue Lovenox Continue COVID-19 vitamins Follow-up labs tomorrow, basic labs and inflammatory markers and d-dimer Wean FiO2 to keep O2 sats is 90% or better Once O2 requirements are down to 5 L and less and patient remains stable may consider for discharge home I performed a history & physical examination of the patient and discussed their management with my nurse practitioner, Iris Hale. I reviewed the nurse practitioner's note and agree with the documented findings and plan of care. Lung sounds are positive for mild crackles throughout the lung curtis. The findings and the impression was discussed with the patient. I attest to the documentation by the nurse practitioner. Time with Patient: Less than 30
[2021-04-29 09:04] LABS: HCT 44.2 % (39.6-50.0); HGB 14.4 g/dL (13.0-17.0); MCH 31.1 pg (27.0-32.0); MCHC 32.6 g/dL (32.0-37.0); MCV 95.5 fL (80.0-97.0); Platelet Count 314 X 10*3/uL (140-440); RBC 4.63 X 10*6/uL (4.40-5.60); WBC 12.12 X 10*3/uL (4.50-10.00)
[2021-04-29] MEDS: CHOLECALCIFEROL 125 MCG (5000 IU) TABLET PO SCH (09:14)
[2021-04-29] MEDS: ENOXAPARIN 40 MG/0.4 ML SYRINGE SQ SCH (09:14)
[2021-04-29] MEDS: dexAMETHasone 2 MG TAB PO SCH (09:14)
[2021-04-29] MEDS: ASCORBIC ACID 500 MG TAB PO SCH (09:14)
[2021-04-29] MEDS: ZINC SULFATE 220 MG CAP PO SCH (09:15)
[2021-04-29] MEDS: ALBUTEROL HFA INHALER INHALATION PRN ×2 (10:02→17:48)
[2021-04-29 10:10] LABS: C Reactive Protein 2.7 mg/dL (0.00-0.80); Magnesium 2.5 mg/dL (1.5-2.4)
[2021-04-29 10:34] LABS: African American GFR (CKD) 104.2 (60.0-200.0); Albumin 3.7 g/dL (3.8-4.9); Albumin/Globulin Ratio 1.61 (1.60-3.17); Blood Urea Nitrogen 19.8 mg/dL (9.0-27.0); Calcium 8.4 mg/dL (8.7-10.3); Globulin 2.3 g/dL (1.6-3.3); Non-African American GFR(CKD) 89.9 (60.0-200.0); Potassium 4.4 mmol/L (3.5-5.5); Total Bilirubin 0.8 mg/dL (0.30-1.20)
[2021-04-29 13:17] VITALS: BMI 26.6
--- NOTE | 2021-04-29 14:34 | P.PN ---
Subjective Progress Note Date: 04/29/21 This is a 65-year-old male patient with no significant medical history, takes no prescription medications on a regular basis, who presented to the emergency department on 04/25/2021 after being diagnosed with COVID-19 last week on Monday on 04/21/2021 at a [facility]. Patient started initially with symptoms of fever, chills, body aches, which progressed to worsening cough, shortness of breath. he came into the emergency department on 04/25/2021, he was on room air, with a pulse ox of 91-92% on room air he was given monoclonal antibody infusion in the ER and discharged home. When he got home his pulse ox was at 85%, and he returned to the emergency department for reevaluation. His chest x- ray showed coarse predominantly interstitial infiltrates in the mid and lower lung curtis, with some coalescent density in the left lower lobe. He was fairly unremarkable, except for his lymphocyte count was at 0.3, his d-dimer was 1.01, INR was 0.9, sodium was 135, potassium is 4.4, chloride is 96, CO2 is 26, B1 of 26 creatinine is 1.38, lactic acid was 1.3, ferritin level was 2692, AST was 62, ALT was 31, alkaline phosphatase was 86, LDH was 1446, CRP was 17.6, pro calcitonin level was 0.26. Patient was again tested for COVID-19 for PCR testing was found to be positive. He is currently on 5 liters of oxygen with a pulse ox of 92%, he is afebrile, breathing fairly comfortably, lung sounds reveal diminished breath sounds bilaterally with some mild crackles over right mid and lower lobe. He was started on Decadron, prophylactic Lovenox, COVID-19 vitamins, and he still within the window for Remdesivir on which he will be started today. The patient is seen today 04/27/2021 in follow-up on the regular medical floor. He is currently resting on his right side in bed. His breathing is about the same today compared to yesterday. No improvement. No worsening. He is still on 8 L high flow nasal cannula to maintain O2 saturation 90%. He is 0.9 normal saline at 75 ML's per hour. Dopplers of the lower extremity revealed no evidence of DVT. CT angiogram ruled out pulmonary embolism. There are findings compatible with atypical pneumonias including CoVID. Patchy groundglass opacities. Count 9.7. Hemoglobin 14.3. D-dimer 0.86. LDH 506. C-reactive protein 5.10. He is continued on Remdesivir, Lovenox, Decadron, vitamin supplements. On 04/28/2021 patient seen in follow-up on medical surgical floor, he is currently on 8 L of oxygen pulse ox 94%, his breathing, with, FiO2 has been turned out to 7 L, he is up in the chair, he states he feels a little better, occasional cough, no phlegm production, no complaint of chest discomfort. CTA of the chest was negative for pulmonary embolism, lower extremity Dopplers were negative for DVT, today's Remdesivir day 3 of treatment and he is on Decadron, prophylactic Lovenox, COVID-19 vitamins, no acute events overnight. On 04/29/2021 patient seen in follow-up on medical surgical floor. He is resting in bed, he is currently on 6 L of oxygen, he is laying on his left side, and his pulse ox is currently 96%, and FiO2 was dropped down to 5 L. No worsening dyspnea, lung sounds reveal diminished breath sounds with diffuse crackles bilaterally. No complaints of chest pain. Occasional cough, no significant phlegm production. Today's labs have been reviewed, showing white blood cell count of 12.12, hemoglobin is 14.4, d-dimer is 1.8, electrolytes and renal profile are within normal limits. His LDH slightly improved, and is down to 517, and his CRP is down to 2.7. Patient continues on Decadron, 6 program daily, prophylactic Lovenox, COVID-19 vitamins, today is day 4 of his Remdesivir treatment. Objective - Vital Signs Vital signs: Vital Signs Temp 98.0 F 04/29/21 09:38 Pulse 79 04/29/21 09:38 Resp 18 04/29/21 09:38 BP 128/78 04/29/21 09:38 Pulse Ox 90 L 04/29/21 10:01 Intake & Output 04/28/21 04/29/21 04/29/21 18:59 06:59 18:59 Output Total 300 Balance -300 Weight 77.111 kg Output: Urine 300 Other: Voiding Method Toilet Urinal # Voids 3 4 1 - Exam GENERAL EXAM: Alert, very pleasant, 65-year-old white male, on 6 L of oxygen with a pulse ox of 90% comfortable in no apparent distress. HEAD: Normocephalic/atraumatic. EYES: Normal reaction of pupils, equal size. Conjunctiva pink, sclera white. NOSE: Clear with pink turbinates. THROAT: No erythema or exudates. NECK: No masses, no JVD, no thyroid enlargement, no adenopathy. CHEST: No chest wall deformity. Symmetrical expansion. LUNGS: Equal air entry with breath sounds bilaterally, with some mild crackles CVS: Regular rate and rhythm, normal S1 and S2, no gallops, no murmurs, no rubs ABDOMEN: Soft, nontender. No hepatosplenomegaly, normal bowel sounds, no guarding or rigidity. EXTREMITIES: No clubbing, no edema, no cyanosis, 2+ pulses and upper and lower extremities. MUSCULOSKELETAL: Muscle strength and tone normal. SPINE: No scoliosis or deformity SKIN: No rashes CENTRAL NERVOUS SYSTEM: Alert and oriented -3. No focal deficits, tone is normal in all 4 extremities. PSYCHIATRIC: Alert and oriented -3. Appropriate affect. Intact judgment and insight. - Labs CBC & Chem 7: 04/29/21 05:52 04/29/21 05:52 Labs: Abnormal Lab Results - Last 24 Hours (Table) 04/29/21 04/29/21 04/29/21 Range/Units 05:52 05:52 05:52 WBC 12.12 H (4.50-10.00) X 10*3/uL D-Dimer 1.82 H (<0.60) mg/L FEU BUN/Creatinine Ratio 22.00 H (12.00-20.00) Ratio Calcium 8.4 L (8.7-10.3) mg/dL Magnesium 2.5 H (1.5-2.4) mg/dL AST 114 H (14-35) U/L ALT 146 H (10-49) U/L Lactate Dehydrogenase 517 H (120-246) U/L C-Reactive Protein 2.70 H (0.00-0.80) mg/dL Total Protein 6.0 L (6.2-8.2) g/dL Albumin 3.7 L (3.8-4.9) g/dL Assessment and Plan Plan: Assessment: #1. Acute hypoxic respiratory failure related to acute COVID-19 related pneumonia, patient presented with 5 day history of symptoms, diagnosed with COVID-19 on an outpatient basis is [facility] on 04/[facility]. Patient was transfused with monoclonal antibody on 04/25/2021. Patient returned with worsening symptoms to the emergency department on the same day and was admitted related to acute hypoxia. Patient is a candidate for Remdesivir and we will start it today on 04/26/2021, he is not vaccinated against COVID-19. Remdesivir was started on 04/26/2021 #2. Elevated d-dimer, rule out possibility of lower extremity DVT or pulmonary embolism #3. Vitamin inflammatory markers related to acute COVID-19 related pneumonia #4. Nonsmoker, lifetime nonsmoker Plan: Continue Remdesivir, today is day 4 of treatment Continue Decadron Continue Lovenox Continue COVID-19 vitamins Follow-up labs have been reviewed, inflammatory markers overall improved since admission Encouraged the patient to self protein, reposition Wean FiO2 to keep O2 sats ration is at or above 90% Currently down to 5 L Once O2 requirements are down to 5 L and less and patient remains stable may consider for discharge home I performed a history & physical examination of the patient and discussed their management with my nurse practitioner, Iris Hale. I reviewed the nurse practitioner's note and agree with the documented findings and plan of care. Lung sounds are positive for mild crackles throughout the lung curtis. The findings and the impression was discussed with the patient. I attest to the documentation by the nurse practitioner. Time with Patient: Less than 30
[2021-04-29] MEDS: REMDESIVIR 100 MG in SODIUM CHLORIDE 0.9% 250 ML IVPB SCH (16:01)
--- NOTE | 2021-04-29 16:40 | P.PN ---
Subjective Progress Note Date: 04/29/21 Hospital course: Patient is a very pleasant 65-year-old male with no known reported past medical history. He presented to the emergency department on 04/25/21 with reports of increased shortness of breath, worsening fatigue and cough status post diagnosis with Covid 19 virus infection on 04/21/21 at [facility]. He underwent full workup in the emergency department with EKG revealing normal sinus rhythm and 94 bpm. Chest x-ray consistent with multifocal pneumonia. Laboratory findings revealed CBC to be unremarkable, BMP showing slightly elevated renal function with BUN of 26, creatinine 1.38, and GFR of 54 with baseline creatinine of 1.2. Inflammatory markers elevated d-dimer 1.01, LDH of 1446 and CRP of 17.6. Ferritin was also elevated at 2692 and pro-calcitonin slightly elevated at 0.26. Upon arrival to the emergency department patient was found to be hypoxic with SpO2 of 85% on room air requiring oxygen supplementation. Patient currently on 5 L O2 maintaining SpO2 of 90%. Patient is admitted under our services with consultation to pulmonology. Physical exam: Patient seen and fully evaluated at the bedside this morning. Oxygen needs improving and patient down to 6 L O2 via nasal cannula maintaining SpO2 of 90%. Patient reports feeling significantly better today and states he continues to have shortness of breath with exertion but otherwise denies having any shortness of breath at rest, chest pain, palpitations, dizziness, lightheadedness, or any other complaints. He reports overall feeling more energetic. Morning labs reviewed patient continued mild leukocytosis with WBC count of 12.12 likely inflammatory response, inflammatory markers remain elevated with d-dimer 1.82, CRP 2.70, and LDH of 517. Liver enzymes elevated with AST of 114 and ALT of 146. Today is day 4 of 5 of Remdesivir. Patient to continue treatment with Remdesivir, Decadron, zinc, vitamin C, vitamin D, and Lovenox. Vital signs reviewed and stable. General: Nontoxic, no distress and appears stated age. Derm: Skin warm and dry, normal coloration for ethnicity. Head: Atraumatic, normocephalic and symmetric. Eyes: EOMs intact, no lid lag, and anicteric sclera Mouth: no lip lesions, mucus membranes moist Cardiovascular: regular rate and rhythm with normal S1S2, no murmur, positive posterior tibial pulses bilaterally, and cap refill < 2 seconds. Lungs: Respirations even, regular, and unlabored on 6 L O2 via nasal cannula. Lungs with bibasilar crackles. No wheezes, rhonchi, or rales. Abdominal: soft, nontender to palpation, no guarding, no appreciable organomegaly Ext: ROM intact. No gross muscle atrophy, no edema, no contractures Neuro: Speech clear, face symmetrical and CN II-XII grossly intact with no noted focal neuro deficits Psych: Alert and oriented to person, place, time, and situation. Appropriate and pleasant affect. Assessment and Plan of Care: Acute respiratory failure with hypoxia secondary to COVID 19 pneumonia -Oxygenation to be administered and titrated as needed to maintain SPO2 equal to or greater than 90% -Telemetry monitoring. -Continue trending inflammatory markers -Encourage Incentive Spirometry 10-15x hourly while awake -Steroids: Decadron 6 mg daily. -Continue vitamin C, Vitamin D, and Zinc. -Pulmonology following, appreciate further recommendations. -DVT prophylaxis with Lovenox. -Strict Droplet plus Contact precautions -Remdesivir day 07/17 Acute kidney injury, resolved with IV fluids Elevated d-dimer -CTA negative for acute PE showing findings compatible with atypical pneumonia -Bilateral lower extremity Dopplers negative for DVTs CODE STATUS: Full Code DVT prophylaxis: Lovenox Discussed with: Patient and RN Anticipated discharge date: Clinical course to determine Anticipated discharge place: Home A total of 45 minutes was spent on the care of this complex patient more than 50% of the time was spent in counseling and care coordination. Objective - Vital Signs Vital signs: Vital Signs Temp 98.0 F 04/29/21 09:38 Pulse 79 04/29/21 09:38 Resp 18 04/29/21 09:38 BP 128/78 04/29/21 09:38 Pulse Ox 90 L 04/29/21 10:01 Intake & Output 04/28/21 04/29/21 04/29/21 18:59 06:59 18:59 Output Total 300 Balance -300 Output: Urine 300 Other: Voiding Method Toilet Urinal # Voids 3 4 1 - Labs CBC & Chem 7: 04/29/21 05:52 04/29/21 05:52 Labs: Abnormal Lab Results - Last 24 Hours (Table) 04/29/21 04/29/21 04/29/21 Range/Units 05:52 05:52 05:52 WBC 12.12 H (4.50-10.00) X 10*3/uL D-Dimer 1.82 H (<0.60) mg/L FEU BUN/Creatinine Ratio 22.00 H (12.00-20.00) Ratio Calcium 8.4 L (8.7-10.3) mg/dL Magnesium 2.5 H (1.5-2.4) mg/dL AST 114 H (14-35) U/L ALT 146 H (10-49) U/L Lactate Dehydrogenase 517 H (120-246) U/L C-Reactive Protein 2.70 H (0.00-0.80) mg/dL Total Protein 6.0 L (6.2-8.2) g/dL Albumin 3.7 L (3.8-4.9) g/dL
[2021-04-30] MEDS: ZINC SULFATE 220 MG CAP PO SCH (09:31)
[2021-04-30] MEDS: ENOXAPARIN 40 MG/0.4 ML SYRINGE SQ SCH (09:31)
[2021-04-30] MEDS: dexAMETHasone 2 MG TAB PO SCH (09:31)
[2021-04-30] MEDS: ASCORBIC ACID 500 MG TAB PO SCH (09:31)
[2021-04-30] MEDS: CHOLECALCIFEROL 125 MCG (5000 IU) TABLET PO SCH (09:32)
[2021-04-30] MEDS: ALBUTEROL HFA INHALER INHALATION PRN (09:44)
--- NOTE | 2021-04-30 15:40 | P.PN ---
Subjective Progress Note Date: 04/30/21 Hospital course: Patient is a very pleasant 65-year-old male with no known reported past medical history. He presented to the emergency department on 04/25/21 with reports of increased shortness of breath, worsening fatigue and cough status post diagnosis with Covid 19 virus infection on 04/21/21 at [facility]. He underwent full workup in the emergency department with EKG revealing normal sinus rhythm and 94 bpm. Chest x-ray consistent with multifocal pneumonia. Laboratory findings revealed CBC to be unremarkable, BMP showing slightly elevated renal function with BUN of 26, creatinine 1.38, and GFR of 54 with baseline creatinine of 1.2. Inflammatory markers elevated d-dimer 1.01, LDH of 1446 and CRP of 17.6. Ferritin was also elevated at 2692 and pro-calcitonin slightly elevated at 0.26. Upon arrival to the emergency department patient was found to be hypoxic with SpO2 of 85% on room air requiring oxygen supplementation. Patient currently on 5 L O2 maintaining SpO2 of 90%. Patient is admitted under our services with consultation to pulmonology. Physical exam: Patient seen and fully evaluated at the bedside this morning. Oxygen needs continue to stay at 6 L O2 via nasal cannula with SpO2 of 90%. Patient reports having a rough night last night with coughing and significant shortness of breath with exertion., But states now that he is sitting up in the chair this morning, he is feeling a bit better. Today is day 5 of 5 of his Remdesivir. Pat ient to continue treatment with Remdesivir, Decadron, zinc, vitamin C, vitamin D, and Lovenox. Vital signs reviewed and stable. General: Nontoxic, no distress and appears stated age. Derm: Skin warm and dry, normal coloration for ethnicity. Head: Atraumatic, normocephalic and symmetric. Eyes: EOMs intact, no lid lag, and anicteric sclera Mouth: no lip lesions, mucus membranes moist Cardiovascular: regular rate and rhythm with normal S1S2, no murmur, positive posterior tibial pulses bilaterally, and cap refill < 2 seconds. Lungs: Respirations even, regular, and unlabored on 6 L O2 via nasal cannula. Lungs with bibasilar crackles. No wheezes, rhonchi, or rales. Abdominal: soft, nontender to palpation, no guarding, no appreciable organomegaly Ext: ROM intact. No gross muscle atrophy, no edema, no contractures Neuro: Speech clear, face symmetrical and CN II-XII grossly intact with no noted focal neuro deficits Psych: Alert and oriented to person, place, time, and situation. Appropriate and pleasant affect. Assessment and Plan of Care: Acute respiratory failure with hypoxia secondary to COVID 19 pneumonia -Oxygenation to be administered and titrated as needed to maintain SPO2 equal to or greater than 90% -Telemetry monitoring. -Continue trending inflammatory markers -Encourage Incentive Spirometry 10-15x hourly while awake -Steroids: Decadron 6 mg daily. -Continue vitamin C, Vitamin D, and Zinc. -Pulmonology following, appreciate further recommendations. -DVT prophylaxis with Lovenox. -Strict Droplet plus Contact precautions -Remdesivir day 09/16 Acute kidney injury, resolved with IV fluids Elevated d-dimer -CTA negative for acute PE showing findings compatible with atypical pneumonia -Bilateral lower extremity Dopplers negative for DVTs CODE STATUS: Full Code DVT prophylaxis: Lovenox Discussed with: Patient and RN Anticipated discharge date: Clinical course to determine Anticipated discharge place: Home A total of 40 minutes was spent on the care of this complex patient more than 50% of the time was spent in counseling and care coordination. Objective - Vital Signs Vital signs: Vital Signs Temp 97.8 F 04/30/21 09:35 Pulse 91 04/30/21 09:35 Resp 20 04/30/21 09:35 BP 129/75 04/30/21 09:35 Pulse Ox 90 L 04/30/21 09:45 Intake & Output 04/29/21 04/30/21 04/30/21 18:59 06:59 18:59 Output Total 600 Balance -600 Weight 77.111 kg Output: Urine 600 Other: Voiding Method Toilet Urinal # Voids 1 - Labs CBC & Chem 7: 04/29/21 05:52 04/29/21 05:52
--- NOTE | 2021-04-30 15:43 | P.PN ---
Subjective Progress Note Date: 04/30/21 This is a 65-year-old male patient with no significant medical history, takes no prescription medications on a regular basis, who presented to the emergency department on 04/25/2021 after being diagnosed with COVID-19 last week on Monday on 04/21/2021 at a [facility]. Patient started initially with symptoms of fever, chills, body aches, which progressed to worsening cough, shortness of breath. he came into the emergency department on 04/25/2021, he was on room air, with a pulse ox of 91-92% on room air he was given monoclonal antibody infusion in the ER and discharged home. When he got home his pulse ox was at 85%, and he returned to the emergency department for reevaluation. His chest x- ray showed coarse predominantly interstitial infiltrates in the mid and lower lung curtis, with some coalescent density in the left lower lobe. He was fairly unremarkable, except for his lymphocyte count was at 0.3, his d-dimer was 1.01, INR was 0.9, sodium was 135, potassium is 4.4, chloride is 96, CO2 is 26, B1 of 26 creatinine is 1.38, lactic acid was 1.3, ferritin level was 2692, AST was 62, ALT was 31, alkaline phosphatase was 86, LDH was 1446, CRP was 17.6, pro calcitonin level was 0.26. Patient was again tested for COVID-19 for PCR testing was found to be positive. He is currently on 5 liters of oxygen with a pulse ox of 92%, he is afebrile, breathing fairly comfortably, lung sounds reveal diminished breath sounds bilaterally with some mild crackles over right mid and lower lobe. He was started on Decadron, prophylactic Lovenox, COVID-19 vitamins, and he still within the window for Remdesivir on which he will be started today. The patient is seen today 04/27/2021 in follow-up on the regular medical floor. He is currently resting on his right side in bed. His breathing is about the same today compared to yesterday. No improvement. No worsening. He is still on 8 L high flow nasal cannula to maintain O2 saturation 90%. He is 0.9 normal saline at 75 ML's per hour. Dopplers of the lower extremity revealed no evidence of DVT. CT angiogram ruled out pulmonary embolism. There are findings compatible with atypical pneumonias including CoVID. Patchy groundglass opacities. Count 9.7. Hemoglobin 14.3. D-dimer 0.86. LDH 506. C-reactive protein 5.10. He is continued on Remdesivir, Lovenox, Decadron, vitamin supplements. On 04/28/2021 patient seen in follow-up on medical surgical floor, he is currently on 8 L of oxygen pulse ox 94%, his breathing, with, FiO2 has been turned out to 7 L, he is up in the chair, he states he feels a little better, occasional cough, no phlegm production, no complaint of chest discomfort. CTA of the chest was negative for pulmonary embolism, lower extremity Dopplers were negative for DVT, today's Remdesivir day 3 of treatment and he is on Decadron, prophylactic Lovenox, COVID-19 vitamins, no acute events overnight. On 04/29/2021 patient seen in follow-up on medical surgical floor. He is resting in bed, he is currently on 6 L of oxygen, he is laying on his left side, and his pulse ox is currently 96%, and FiO2 was dropped down to 5 L. No worsening dyspnea, lung sounds reveal diminished breath sounds with diffuse crackles bilaterally. No complaints of chest pain. Occasional cough, no significant phlegm production. Today's labs have been reviewed, showing white blood cell count of 12.12, hemoglobin is 14.4, d-dimer is 1.8, electrolytes and renal profile are within normal limits. His LDH slightly improved, and is down to 517, and his CRP is down to 2.7. Patient continues on Decadron, 6 program daily, prophylactic Lovenox, COVID-19 vitamins, today is day 4 of his Remdesivir treatment. On 04/30/2021 patient seen in follow-up on medical surgical floor. He is currently on 6 L of oxygen, his pulse ox is 90-93%, FiO2 has been dropped down to 5 L, his breathing comfortably, has no specific complaints, has been afebrile, hemodynamically his been stable, he is on day 4 of his Remdesivir, he remains on Lovenox. Objective - Vital Signs Vital signs: Vital Signs Temp 97.8 F 04/30/21 15:21 Pulse 84 04/30/21 15:21 Resp 24 04/30/21 15:21 BP 121/71 04/30/21 15:21 Pulse Ox 91 L 04/30/21 15:21 Intake & Output 04/29/21 04/30/21 04/30/21 18:59 06:59 18:59 Output Total 600 Balance -600 Weight 77.111 kg Output: Urine 600 Other: Voiding Method Toilet Urinal # Voids 1 - Exam GENERAL EXAM: Alert, very pleasant, 65-year-old white male, on 6 L of oxygen with a pulse ox of 96% comfortable in no apparent distress. HEAD: Normocephalic/atraumatic. EYES: Normal reaction of pupils, equal size. Conjunctiva pink, sclera white. NOSE: Clear with pink turbinates. THROAT: No erythema or exudates. NECK: No masses, no JVD, no thyroid enlargement, no adenopathy. CHEST: No chest wall deformity. Symmetrical expansion. LUNGS: Equal air entry with breath sounds bilaterally, with some mild crackles CVS: Regular rate and rhythm, normal S1 and S2, no gallops, no murmurs, no rubs ABDOMEN: Soft, nontender. No hepatosplenomegaly, normal bowel sounds, no guarding or rigidity. EXTREMITIES: No clubbing, no edema, no cyanosis, 2+ pulses and upper and lower extremities. MUSCULOSKELETAL: Muscle strength and tone normal. SPINE: No scoliosis or deformity SKIN: No rashes CENTRAL NERVOUS SYSTEM: Alert and oriented -3. No focal deficits, tone is normal in all 4 extremities. PSYCHIATRIC: Alert and oriented -3. Appropriate affect. Intact judgment and i nsight. - Labs CBC & Chem 7: 04/29/21 05:52 04/29/21 05:52 Assessment and Plan Plan: Assessment: #1. Acute hypoxic respiratory failure related to acute COVID-19 related pneumonia, patient presented with 5 day history of symptoms, diagnosed with COVID-19 on an outpatient basis is [facility] on 04/21/2021. Patient was transfused with monoclonal antibody on 04/25/2021. Patient returned with worsening symptoms to the emergency department on the same day and was admitted related to acute hypoxia. Patient is a candidate for Remdesivir and we will start it today on 04/26/2021, he is not vaccinated against COVID-19. Remdesivir was started on 04/26/2021 #2. Elevated d-dimer, ruled out possibility of lower extremity DVT or pulmonary embolism #3. Vitamin inflammatory markers related to acute COVID-19 related pneumonia #4. Nonsmoker, lifetime nonsmoker Plan: Continue Remdesivir, today is day 5 of treatment Continue Decadron Continue Lovenox Continue COVID-19 vitamins Follow-up labs have been reviewed, inflammatory markers overall improved since admission Encouraged the patient to self prone, reposition Wean FiO2 to keep O2 sats at or above 90% Currently down to 5 L Once O2 requirements are down to 5 L and less and patient remains stable may consider for discharge home I performed a history & physical examination of the patient and discussed their management with my nurse practitioner, Iris Hale. I reviewed the nurse practitioner's note and agree with the documented findings and plan of care. Lung sounds are positive for mild crackles throughout the lung curtis. The findings and the impression was discussed with the patient. I attest to the documentation by the nurse practitioner. Time with Patient: Less than 30
[2021-04-30] MEDS: REMDESIVIR 100 MG in SODIUM CHLORIDE 0.9% 250 ML IVPB SCH (17:18)
[2021-05-01] MEDS: dexAMETHasone 2 MG TAB PO SCH (07:51)
[2021-05-01] MEDS: ZINC SULFATE 220 MG CAP PO SCH (07:51)
[2021-05-01] MEDS: ASCORBIC ACID 500 MG TAB PO SCH (07:52)
[2021-05-01] MEDS: CHOLECALCIFEROL 125 MCG (5000 IU) TABLET PO SCH (07:52)
[2021-05-01] MEDS: ENOXAPARIN 40 MG/0.4 ML SYRINGE SQ SCH (07:52)
[2021-05-01] MEDS: ALBUTEROL HFA INHALER INHALATION PRN ×2 (07:59→17:38)
[2021-05-01 09:28] LABS: HCT 42.1 % (39.6-50.0); MCHC 33.3 g/dL (32.0-37.0); MCV 93.1 fL (80.0-97.0); Mean Platelet Volume 9.6 fL (9.5-12.2); Platelet Count 384 X 10*3/uL (140-440); RBC 4.52 X 10*6/uL (4.40-5.60); RDW 12.9 % (11.5-14.5)
[2021-05-01 11:12] LABS: African American GFR (CKD) 101.5 (60.0-200.0); Albumin 3.2 g/dL (3.8-4.9); Albumin/Globulin Ratio 1.34 (1.60-3.17); Anion Gap 14.3 mmol/L (10.00-18.00); BUN/Creat Ratio 20.43 Ratio (12.00-20.00); Blood Urea Nitrogen 18.8 mg/dL (9.0-27.0); C Reactive Protein 14.5 mg/dL (0.00-0.80); Calcium 8.4 mg/dL (8.7-10.3); Carbon Dioxide 20.7 mmol/L (20.0-27.5); Globulin 2.4 g/dL (1.6-3.3); Magnesium 2.3 mg/dL (1.5-2.4); Non-African American GFR(CKD) 87.6 (60.0-200.0); Potassium 4.6 mmol/L (3.5-5.5); Total Bilirubin 0.9 mg/dL (0.30-1.20); Total Protein 5.6 g/dL (6.2-8.2)
[2021-05-01] MEDS ORDERED: FLUTICASONE 50MCG/SPRAY NASAL 16GM EA NOSTRIL PRN (12:22)
--- NOTE | 2021-05-01 12:22 | P.PN ---
Subjective Progress Note Date: 05/01/21 Hospital course: Patient is a very pleasant 65-year-old male with no known reported past medical history. He presented to the emergency department on 04/25/21 with reports of increased shortness of breath, worsening fatigue and cough status post diagnosis with Covid 19 virus infection on 04/21/21 at [facility]. He underwent full workup in the emergency department with EKG revealing normal sinus rhythm and 94 bpm. Chest x-ray consistent with multifocal pneumonia. Laboratory findings revealed CBC to be unremarkable, BMP showing slightly elevated renal function with BUN of 26, creatinine 1.38, and GFR of 54 with baseline creatinine of 1.2. Inflammatory markers elevated d-dimer 1.01, LDH of 1446 and CRP of 17.6. Ferritin was also elevated at 2692 and pro-calcitonin slightly elevated at 0.26. Upon arrival to the emergency department patient was found to be hypoxic with SpO2 of 85% on room air requiring oxygen supplementation. Patient is admitted under our services with consultation to pulmonology. Physical exam: Patient seen and fully evaluated at the bedside this morning. Oxygen needs lightly increased overnight and patient on 7 L O2 via nasal cannula with SpO2 88-90%. Patient completed course of Remdesivir yesterday. He reports other than feeling significantly short of breath with any movement he denies feeling short of breath at rest or experiencing any headache, lightheadedness, chest pain, palpitations, or any numbness/tingling/weakness in his extremities. morning labs reviewed. WBC count 11.0, AST 83, and ALT 157. Inflammatory markers remain elevated with d-dimer of 1.27, CRP 14.50, and LDH is 399. Patient to continue treatment with Decadron, zinc, vitamin C, vitamin D, and Lovenox. We will continue to follow labs and obtain a repeat chest x-ray tomorrow morning. Vital signs reviewed and stable. General: Nontoxic, no distress and appears stated age. Derm: Skin warm and dry, normal coloration for ethnicity. Head: Atraumatic, normocephalic and symmetric. Eyes: EOMs intact, no lid lag, and anicteric sclera Mouth: no lip lesions, mucus membranes moist Cardiovascular: regular rate and rhythm with normal S1S2, no murmur, positive posterior tibial pulses bilaterally, and cap refill < 2 seconds. Lungs: Respirations even, regular, and unlabored on 6 L O2 via nasal cannula. Lungs with bibasilar crackles. No wheezes, rhonchi, or rales. Abdominal: soft, nontender to palpation, no guarding, no appreciable organomegaly Ext: ROM intact. No gross muscle atrophy, no edema, no contractures Neuro: Speech clear, face symmetrical and CN II-XII grossly intact with no noted focal neuro deficits Psych: Alert and oriented to person, place, time, and situation. Appropriate and pleasant affect. Assessment and Plan of Care: Acute respiratory failure with hypoxia secondary to COVID 19 pneumonia -Oxygenation to be administered and titrated as needed to maintain SPO2 equal to or greater than 90% -Telemetry monitoring. -Continue trending inflammatory markers -Encourage Incentive Spirometry 10-15x hourly while awake -Steroids: Decadron 6 mg daily. -Continue vitamin C, Vitamin D, and Zinc. -Pulmonology following, appreciate further recommendations. -DVT prophylaxis with Lovenox. -Strict Droplet plus Contact precautions -Completed course of Remdesivir -Encourage prone positioning Acute kidney injury, resolved with IV fluids Elevated d-dimer -CTA negative for acute PE showing findings compatible with atypical pneumonia -Bilateral lower extremity Dopplers negative for DVTs CODE STATUS: Full Code DVT prophylaxis: Lovenox Discussed with: Patient and RN Anticipated discharge date: Plan for possible discharge home on oxygen in the next 1-2 days, oxygen concentrator being delivered to patient's home Anticipated discharge place: Home A total of 45 minutes was spent on the care of this complex patient more than 50% of the time was spent in counseling and care coordination. Objective - Vital Signs Vital signs: Vital Signs Temp 97.9 F 05/01/21 05:20 Pulse 92 05/01/21 05:20 Resp 18 05/01/21 05:20 BP 112/72 05/01/21 05:20 Pulse Ox 93 L 05/01/21 05:20 Intake & Output 04/30/21 05/01/21 05/01/21 18:59 06:59 18:59 Other: Voiding Method Toilet Toilet Urinal # Voids 2 - Labs CBC & Chem 7: 05/01/21 06:20 05/01/21 06:20 Labs: Abnormal Lab Results - Last 24 Hours (Table) 05/01/21 Range/Units 06:20 D-Dimer 1.27 H (<0.60) mg/L FEU
--- NOTE | 2021-05-01 15:25 | P.PN ---
Subjective Progress Note Date: 05/01/21 Principal diagnosis: COVID-19 pneumonia This is a 65-year-old male patient with no significant medical history, takes no prescription medications on a regular basis, who presented to the emergency department on 04/25/2021 after being diagnosed with COVID-19 last week on Monday on 04/21/2021 at a [facility]. Patient started initially with symptoms of fever, chills, body aches, which progressed to worsening cough, shortness of breath. he came into the emergency department on 04/25/2021, he was on room air, with a pulse ox of 91-92% on room air he was given monoclonal antibody infusion in the ER and discharged home. When he got home his pulse ox was at 85%, and he returned to the emergency department for reevaluation. His chest x- ray showed coarse predominantly interstitial infiltrates in the mid and lower lung curtis, with some coalescent density in the left lower lobe. He was fairly unremarkable, except for his lymphocyte count was at 0.3, his d-dimer was 1.01, INR was 0.9, sodium was 135, potassium is 4.4, chloride is 96, CO2 is 26, B1 of 26 creatinine is 1.38, lactic acid was 1.3, ferritin level was 2692, AST was 62, ALT was 31, alkaline phosphatase was 86, LDH was 1446, CRP was 17.6, pro calcitonin level was 0.26. Patient was again tested for COVID-19 for PCR testing was found to be positive. He is currently on 5 liters of oxygen with a pulse ox of 92%, he is afebrile, breathing fairly comfortably, lung sounds reveal diminished breath sounds bilaterally with some mild crackles over right mid and lower lobe. He was started on Decadron, prophylactic Lovenox, COVID-19 vitamins, and he still within the window for Remdesivir on which he will be started today. The patient is seen today 04/27/2021 in follow-up on the regular medical floor. He is currently resting on his right side in bed. His breathing is about the same today compared to yesterday. No improvement. No worsening. He is still on 8 L high flow nasal cannula to maintain O2 saturation 90%. He is 0.9 normal saline at 75 ML's per hour. Dopplers of the lower extremity revealed no evidence of DVT. CT angiogram ruled out pulmonary embolism. There are findings compatible with atypical pneumonias including CoVID. Patchy groundglass opacities. Count 9.7. Hemoglobin 14.3. D-dimer 0.86. LDH 506. C-reactive protein 5.10. He is continued on Remdesivir, Lovenox, Decadron, vitamin supplements. The patient is seen today 05/01/2021 in follow-up on the regular medical floor. He is awake and alert in no acute distress. Still rate. 6 L of nasal cannula to maintain O2 saturations in the 90s. Normal saline at KVO. He is feeling better overall. He is working with the incentive spirometer. He remains on Decadron, Lovenox, vitamin supplements. He completed Remdesivir yesterday. White count 11.0. Hemoglobin 14.0. D-dimer 1.27. Sodium 137. Potassium 4.6. Creatinine 0.9. AST 83. ALT 157. LDH 399. C-reactive protein 14.5. Objective - Vital Signs Vital signs: Vital Signs Temp 98.4 F 05/01/21 10:56 Pulse 92 05/01/21 10:56 Resp 24 05/01/21 10:56 BP 120/75 05/01/21 10:56 Pulse Ox 89 L 05/01/21 10:56 Intake & Output 04/30/21 05/01/21 05/01/21 18:59 06:59 18:59 Intake Total 400 Balance 400 Intake: Oral 400 Other: Voiding Method Toilet Toilet Toilet Urinal # Voids 2 - Exam GENERAL EXAM: Alert, very pleasant, 65-year-old male patient, on 6 L of oxygen, comfortable in no apparent distress. HEAD: Normocephalic/atraumatic. EYES: Normal reaction of pupils, equal size. Conjunctiva pink, sclera white. NOSE: Clear with pink turbinates. THROAT: No erythema or exudates. NECK: No masses, no JVD, no thyroid enlargement, no adenopathy. CHEST: No chest wall deformity. Symmetrical expansion. LUNGS: Equal air entry with some coarse crackles in the posterior bases CVS: Regular rate and rhythm, normal S1 and S2, no gallops, no murmurs, no rubs ABDOMEN: Soft, nontender. No hepatosplenomegaly, normal bowel sounds, no guarding or rigidity. EXTREMITIES: No clubbing, no edema, no cyanosis, 2+ pulses and upper and lower extremities. MUSCULOSKELETAL: Muscle strength and tone normal. SPINE: No scoliosis or deformity SKIN: No rashes CENTRAL NERVOUS SYSTEM: No focal deficits, tone is normal in all 4 extremities. PSYCHIATRIC: Alert and oriented -3. Appropriate affect. Intact judgment and insight. - Labs CBC & Chem 7: 05/01/21 06:20 05/01/21 06:20 Labs: Abnormal Lab Results - Last 24 Hours (Table) 05/01/21 05/01/21 05/01/21 Range/Units 06:20 06:20 06:20 WBC 11.00 H (4.50-10.00) X 10*3/uL D-Dimer 1.27 H (<0.60) mg/L FEU BUN/Creatinine Ratio 20.43 H (12.00-20.00) Ratio Calcium 8.4 L (8.7-10.3) mg/dL AST 83 H (14-35) U/L ALT 157 H (10-49) U/L Lactate Dehydrogenase 399 H (120-246) U/L C-Reactive Protein 14.50 H (0.00-0.80) mg/dL Total Protein 5.6 L (6.2-8.2) g/dL Albumin 3.2 L (3.8-4.9) g/dL Albumin/Globulin Ratio 1.34 L (1.60-3.17) g/dL Assessment and Plan Assessment: 1 Acute hypoxic respiratory failure related to acute COVID-19 related pneumonia, patient presented with 5 day history of symptoms, diagnosed with COVID-19 on an outpatient basis is [facility] on 04/21/2021. Patient was transfused with monoclonal antibody on 04/25/2021. Patient returned with worsening symptoms to the emergency department on the same day and was admitted related to acute hypoxia. Remdesivir started on 04/26/2021 and completed 04/30/2021, he is not vaccinated against COVID-19 2 Elevated d-dimer, rule out possibility of lower extremity DVT or pulmonary embolism 3 Vitamin inflammatory markers related to acute COVID-19 related pneumonia 4 Nonsmoker, lifetime nonsmoker Plan: The patient was seen and evaluated Currently on 6 L high flow nasal cannula Continue to titrate down as tolerated Completed a course of Remdesivir Continued on Lovenox, Decadron, vitamin supplements We'll continue to follow I, the cosigning physician, performed a history & physical examination of the patient. Lungs sounds with coarse crackles in the bilateral bases. Maintaining good O2 saturations in the 90s on 6 L high flow nasal cannula. I discussed the assessment and plan of care with my nurse practitioner, Venice Lucas. I attest to the above note as dictated by her.
--- NOTE | 2021-05-02 07:48 | XR ---
EXAMINATION TYPE: XR chest 1V portable DATE OF EXAM: 05/02/2021 COMPARISON: 04/25/2021 HISTORY: Suspected Covid pneumonia TECHNIQUE: Single frontal view of the chest is obtained. FINDINGS: There are scattered partially consolidative opacities in the mid lower lung zones which al lowing for differences in technique are essentially stable. Allograft there is no pneumothorax or lar ge pleural effusion. Heart size is normal and the vasculature is not congested. The osseous structure s are intact IMPRESSION: No change in the acute cardiopulmonary process.
[2021-05-02] MEDS: dexAMETHasone 2 MG TAB PO SCH (08:12)
[2021-05-02] MEDS: ENOXAPARIN 40 MG/0.4 ML SYRINGE SQ SCH (08:12)
[2021-05-02] MEDS: ZINC SULFATE 220 MG CAP PO SCH (08:12)
[2021-05-02] MEDS: ASCORBIC ACID 500 MG TAB PO SCH (08:12)
[2021-05-02] MEDS: CHOLECALCIFEROL 125 MCG (5000 IU) TABLET PO SCH (08:12)
[2021-05-02 12:24] LABS: HCT 41.6 % (39.6-50.0); HGB 13.3 g/dL (13.0-17.0); MCH 30.6 pg (27.0-32.0); MCV 95.9 fL (80.0-97.0); Mean Platelet Volume 9.6 fL (9.5-12.2); Platelet Count 443 X 10*3/uL (140-440); RBC 4.34 X 10*6/uL (4.40-5.60); RDW 12.8 % (11.5-14.5); WBC 8.98 X 10*3/uL (4.50-10.00)
[2021-05-02 13:06] LABS: African American GFR (CKD) 86.5 (60.0-200.0); Albumin 3.1 g/dL (3.8-4.9); Albumin/Globulin Ratio 1.27 (1.60-3.17); Anion Gap 15.3 mmol/L (10.00-18.00); BUN/Creat Ratio 19.14 Ratio (12.00-20.00); Blood Urea Nitrogen 20.1 mg/dL (9.0-27.0); Calcium 8.3 mg/dL (8.7-10.3); Carbon Dioxide 20.3 mmol/L (20.0-27.5); Globulin 2.4 g/dL (1.6-3.3); Magnesium 2.4 mg/dL (1.5-2.4); Non-African American GFR(CKD) 74.7 (60.0-200.0); Total Bilirubin 0.6 mg/dL (0.30-1.20); Total Protein 5.5 g/dL (6.2-8.2)
--- NOTE | 2021-05-02 13:51 | P.PN ---
Subjective Progress Note Date: 05/02/21 Hospital course: Patient is a very pleasant 65-year-old male with no known reported past medical history. He presented to the emergency department on 04/25/21 with reports of increased shortness of breath, worsening fatigue and cough status post diagnosis with Covid 19 virus infection on 04/21/21 at [facility]. He underwent full workup in the emergency department with EKG revealing normal sinus rhythm and 94 bpm. Chest x-ray consistent with multifocal pneumonia. Laboratory findings revealed CBC to be unremarkable, BMP showing slightly elevated renal function with BUN of 26, creatinine 1.38, and GFR of 54 with baseline creatinine of 1.2. Inflammatory markers elevated d-dimer 1.01, LDH of 1446 and CRP of 17.6. Ferritin was also elevated at 2692 and pro-calcitonin slightly elevated at 0.26. Upon arrival to the emergency department patient was found to be hypoxic with SpO2 of 85% on room air requiring oxygen supplementation. Patient is admitted under our services with consultation to pulmonology. CTA negative for acute PE showing findings compatible with atypical pneumonia. Bilateral lower extremity Dopplers negative for DVTs. Follow-up Chest x-ray completed 05/02/21 showing no change as patient continues to have scattered partially consolidative opacities in bilateral mid and lower lung zones. Physical exam: Patient seen and fully evaluated at the bedside this morning. He is on 6 L O2 via nasal cannula with SpO2 of 87-89%. Patient encouraged to prone position and the importance of use of incentive spirometry in which patient reports that he is using a minimum of 15 times per hour. Morning labs revealed mild thrombocytosis with platelet count of 443 and elevated inflammatory markers with d-dimer of 1.48, LDH of 402, and CRP of 11.0. Patient continues to have conversational dyspnea and significant desaturations with minimal exertion. Patient denies feeling short of breath at rest and denies having any headache, lightheadedness, dizziness, chest pain, palpitations, nausea, or experiencing any numbness/tingling/weakness in his extremities. Patient to continue treatment with Decadron, zinc, vitamin C, vitamin D, and Lovenox. Chest x-ray completed this morning showing no change as patient continues to have scattered partially consolidative opacities in bilateral mid and lower lung zones. Vital signs reviewed and stable. General: Nontoxic, no distress and appears stated age. Derm: Skin warm and dry, normal coloration for ethnicity. Head: Atraumatic, normocephalic and symmetric. Eyes: EOMs intact, no lid lag, and anicteric sclera Mouth: no lip lesions, mucus membranes moist Cardiovascular: regular rate and rhythm with normal S1S2, no murmur, positive posterior tibial pulses bilaterally, and cap refill < 2 seconds. Lungs: Respirations even, regular, and unlabored on 6 L O2 via nasal cannula. Lungs with bibasilar crackles. No wheezes, rhonchi, or rales. Abdominal: soft, nontender to palpation, no guarding, no appreciable organomegaly Ext: ROM intact. No gross muscle atrophy, no edema, no contractures Neuro: Speech clear, face symmetrical and CN II-XII grossly intact with no noted focal neuro deficits Psych: Alert and oriented to person, place, time, and situation. Appropriate and pleasant affect. Assessment and Plan of Care: Acute respiratory failure with hypoxia secondary to COVID 19 pneumonia -Oxygenation to be administered and titrated as needed to maintain SPO2 equal to or greater than 90% -Telemetry monitoring. -Continue trending inflammatory markers -Encourage Incentive Spirometry 10-15x hourly while awake -Steroids: Decadron 6 mg daily. -Continue vitamin C, Vitamin D, and Zinc. -Pulmonology following, appreciate further recommendations. -DVT prophylaxis with Lovenox. -Strict Droplet plus Contact precautions -Completed course of Remdesivir -Encourage prone positioning Acute kidney injury, resolved with IV fluids Elevated d-dimer -CTA negative for acute PE showing findings compatible with atypical pneumonia -Bilateral lower extremity Dopplers negative for DVTs CODE STATUS: Full Code DVT prophylaxis: Lovenox Discussed with: Patient and RN Anticipated discharge date: Plan for possible discharge home on oxygen in the next 1-2 days pending clinical course, oxygen concentrator being delivered to patient's home Anticipated discharge place: Home A total of 45 minutes was spent on the care of this complex patient more than 50% of the time was spent in counseling and care coordination. Objective - Vital Signs Vital signs: Vital Signs Temp 98.4 F 05/02/21 10:39 Pulse 74 05/02/21 10:39 Resp 20 05/02/21 10:39 BP 123/71 05/02/21 10:39 Pulse Ox 99 05/02/21 10:39 Intake & Output 12/05/02/21 05/02/21 18:59 06:59 18:59 Intake Total 400 400 Balance 400 400 Intake: Oral 400 400 Other: Voiding Method Toilet Toilet # Voids 2 - Labs CBC & Chem 7: 05/02/21 05:32 05/02/21 05:32 Labs: Abnormal Lab Results - Last 24 Hours (Table) 05/02/21 Range/Units 05:32 D-Dimer 1.48 H (<0.60) mg/L FEU
--- NOTE | 2021-05-02 16:31 | P.PN ---
Subjective Progress Note Date: 05/02/21 This is a 65-year-old male patient with no significant medical history, takes no prescription medications on a regular basis, who presented to the emergency department on 04/25/2021 after being diagnosed with COVID-19 last week on Monday on [facility] Patient started initially with symptoms of fever, chills, body aches, which progressed to worsening cough, shortness of breath. he came into the emergency department on 04/25/2021, he was on room air, with a pulse ox of 91-92% on room air he was given monoclonal antibody infusion in the ER and discharged home. When he got home his pulse ox was at 85%, and he returned to the emergency department for reevaluation. His chest x- ray showed coarse predominantly interstitial infiltrates in the mid and lower lung curtis, with some coalescent density in the left lower lobe. He was fairly unremarkable, except for his lymphocyte count was at 0.3, his d-dimer was 1.01, INR was 0.9, sodium was 135, potassium is 4.4, chloride is 96, CO2 is 26, B1 of 26 creatinine is 1.38, lactic acid was 1.3, ferritin level was 2692, AST was 62, ALT was 31, alkaline phosphatase was 86, LDH was 1446, CRP was 17.6, pro calcitonin level was 0.26. Patient was again tested for COVID-19 for PCR testing was found to be positive. He is currently on 5 liters of oxygen with a pulse ox of 92%, he is afebrile, breathing fairly comfortably, lung sounds reveal diminished breath sounds bilaterally with some mild crackles over right mid and lower lobe. He was started on Decadron, prophylactic Lovenox, COVID-19 vitamins, and he still within the window for Remdesivir on which he will be started today. The patient is seen today 04/27/2021 in follow-up on the regular medical floor. He is currently resting on his right side in bed. His breathing is about the same today compared to yesterday. No improvement. No worsening. He is still on 8 L high flow nasal cannula to maintain O2 saturation 90%. He is 0.9 normal saline at 75 ML's per hour. Dopplers of the lower extremity revealed no evidence of DVT. CT angiogram ruled out pulmonary embolism. There are findings compatible with atypical pneumonias including CoVID. Patchy groundglass opacities. Count 9.7. Hemoglobin 14.3. D-dimer 0.86. LDH 506. C-reactive protein 5.10. He is continued on Remdesivir, Lovenox, Decadron, vitamin supplements. On 04/28/2021 patient seen in follow-up on medical surgical floor, he is currently on 8 L of oxygen pulse ox 94%, his breathing, with, FiO2 has been turned out to 7 L, he is up in the chair, he states he feels a little better, occasional cough, no phlegm production, no complaint of chest discomfort. CTA of the chest was negative for pulmonary embolism, lower extremity Dopplers were negative for DVT, today's Remdesivir day 3 of treatment and he is on Decadron, prophylactic Lovenox, COVID-19 vitamins, no acute events overnight. On 04/29/2021 patient seen in follow-up on medical surgical floor. He is resting in bed, he is currently on 6 L of oxygen, he is laying on his left side, and his pulse ox is currently 96%, and FiO2 was dropped down to 5 L. No worsening dyspnea, lung sounds reveal diminished breath sounds with diffuse crackles bilaterally. No complaints of chest pain. Occasional cough, no significant phlegm production. Today's labs have been reviewed, showing white blood cell count of 12.12, hemoglobin is 14.4, d-dimer is 1.8, electrolytes and renal profile are within normal limits. His LDH slightly improved, and is down to 517, and his CRP is down to 2.7. Patient continues on Decadron, 6 program daily, prophylactic Lovenox, COVID-19 vitamins, today is day 4 of his Remdesivir treatment. On 04/30/2021 patient seen in follow-up on medical surgical floor. He is currently on 6 L of oxygen, his pulse ox is 90-93%, FiO2 has been dropped down to 5 L, his breathing comfortably, has no specific complaints, has been afebrile, hemodynamically his been stable, he is on day 4 of his Remdesivir, he remains on Lovenox. On 05/02/2021 patient seen in follow-up on medical surgical floor. He is bradycardic but, he sitting up in a recliner, in no acute distress. Lung sounds are essentially clear to auscultation, he is still on 6 L of oxygen his pulse ox of 92%, and FiO2 has been turned down to 5 L. He has completed his Remdesivir course, remains on Decadron, prophylactic Lovenox and multivitamins. No acute issues overnight. No fever or chills. His chest x-ray today shows partially consolidative opacities in mid lower lung zones, without significant change. Today's labs have been reviewed, his white count is 8.9, hemoglobin is 13.3, electrolytes and renal profile are within normal limits. His LDH is improving and is down to 402, and CRPs 11. Objective - Vital Signs Vital signs: Vital Signs Temp 98.3 F 05/02/21 15:14 Pulse 76 05/02/21 15:14 Resp 24 05/02/21 15:14 BP 119/77 05/02/21 15:14 Pulse Ox 89 L 05/02/21 15:14 Intake & Output 05/01/21 05/02/21 05/02/21 18:59 06:59 18:59 Intake Total 400 640 Balance 400 640 Intake: Oral 400 640 Other: Voiding Method Toilet Toilet # Voids 2 - Exam GENERAL EXAM: Alert, very pleasant, 65-year-old white male, on 5 L of oxygen with a pulse ox of 89% comfortable in no apparent distress. HEAD: Normocephalic/atraumatic. EYES: Normal reaction of pupils, equal size. Conjunctiva pink, sclera white. NOSE: Clear with pink turbinates. THROAT: No erythema or exudates. NECK: No masses, no JVD, no thyroid enlargement, no adenopathy. CHEST: No chest wall deformity. Symmetrical expansion. LUNGS: Equal air entry with breath sounds bilaterally, with some mild crackles CVS: Regular rate and rhythm, normal S1 and S2, no gallops, no murmurs, no rubs ABDOMEN: Soft, nontender. No hepatosplenomegaly, normal bowel sounds, no guarding or rigidity. EXTREMITIES: No clubbing, no edema, no cyanosis, 2+ pulses and upper and lower extremities. MUSCULOSKELETAL: Muscle strength and tone normal. SPINE: No scoliosis or deformity SKIN: No rashes CENTRAL NERVOUS SYSTEM: Alert and oriented -3. No focal deficits, tone is normal in all 4 extremities. PSYCHIATRIC: Alert and oriented -3. Appropriate affect. Intact judgment and insight. - Labs CBC & Chem 7: 05/02/21 05:32 05/02/21 05:32 Labs: Abnormal Lab Results - Last 24 Hours (Table) 05/02/21 05/02/21 05/02/21 Range/Units 05:32 05:32 05:32 RBC 4.34 L (4.40-5.60) X 10*6/uL Plt Count 443 H (140-440) X 10*3/uL D-Dimer 1.48 H (<0.60) mg/L FEU Calcium 8.3 L (8.7-10.3) mg/dL AST 68 H (14-35) U/L ALT 140 H (10-49) U/L Lactate Dehydrogenase 402 H (120-246) U/L C-Reactive Protein 11.00 H (0.00-0.80) mg/dL Total Protein 5.5 L (6.2-8.2) g/dL Albumin 3.1 L (3.8-4.9) g/dL Albumin/Globulin Ratio 1.27 L (1.60-3.17) g/dL Assessment and Plan Plan: Assessment: #1. Acute hypoxic respiratory failure related to acute COVID-19 related pneumonia, patient presented with 5 day history of symptoms, diagnosed with COVID-19 on an outpatient basis is [facility] on 04/21/2021. Patient was transfused with monoclonal antibody on 04/25/2021. Patient returned with worsening symptoms to the emergency department on the same day and was admitted related to acute hypoxia. Patient is a candidate for Remdesivir and we will start it today on 04/26/2021, he is not vaccinated against COVID-19. Remdesivir was started on 04/26/2021 #2. Elevated d-dimer, ruled out possibility of lower extremity DVT or pulmonary embolism #3. Vitamin inflammatory markers related to acute COVID-19 related pneumonia #4. Nonsmoker, lifetime nonsmoker Plan: Patient has completed the Remdesivir Continue Decadron Continue Lovenox Continue COVID-19 vitamins Inflammatory markers have improved Clinically stable Chest x-ray shows stable bilateral patchy partial consolidative opacities Continue weaning FiO2, once he is down to 5 L of supplemental oxygen last and remains stable we may consider for discharge home I performed a history & physical examination of the patient and discussed their management with my nurse practitioner, Iris Hale. I reviewed the nurse practitioner's note and agree with the documented findings and plan of care. Lung sounds are positive for mild crackles throughout the lung curtis. The findings and the impression was discussed with the patient. I attest to the documentation by the nurse practitioner. Time with Patient: Less than 30
[2021-05-02] MEDS: ALBUTEROL HFA INHALER INHALATION PRN (16:40)
[2021-05-03] MEDS: ASCORBIC ACID 500 MG TAB PO SCH (07:19)
[2021-05-03] MEDS: ENOXAPARIN 40 MG/0.4 ML SYRINGE SQ SCH (07:19)
[2021-05-03] MEDS: dexAMETHasone 2 MG TAB PO SCH (07:19)
[2021-05-03] MEDS: CHOLECALCIFEROL 125 MCG (5000 IU) TABLET PO SCH (07:19)
[2021-05-03] MEDS: ZINC SULFATE 220 MG CAP PO SCH (07:19)
[2021-05-03] MEDS: ALBUTEROL HFA INHALER INHALATION PRN (08:00)
[2021-05-03 09:21] LABS: HCT 42.7 % (39.6-50.0); HGB 13.8 g/dL (13.0-17.0); MCH 30.9 pg (27.0-32.0); MCHC 32.3 g/dL (32.0-37.0); MCV 95.7 fL (80.0-97.0); Mean Platelet Volume 9.3 fL (9.5-12.2); Platelet Count 471 X 10*3/uL (140-440); RBC 4.46 X 10*6/uL (4.40-5.60); RDW 12.6 % (11.5-14.5); WBC 8.25 X 10*3/uL (4.50-10.00)
[2021-05-03 09:39] VITALS: BP 104/67; PULSE 75; RESP 17; TEMP 98.3
[2021-05-03 11:33] LABS: African American GFR (CKD) 84.6 (60.0-200.0); Albumin/Globulin Ratio 1.23 (1.60-3.17); Anion Gap 10.7 mmol/L (10.00-18.00); BUN/Creat Ratio 20.93 Ratio (12.00-20.00); Blood Urea Nitrogen 22.4 mg/dL (9.0-27.0); C Reactive Protein 4.5 mg/dL (0.00-0.80); Calcium 8.5 mg/dL (8.7-10.3); Carbon Dioxide 23.9 mmol/L (20.0-27.5); Globulin 2.5 g/dL (1.6-3.3); Magnesium 2.2 mg/dL (1.5-2.4); Potassium 4.5 mmol/L (3.5-5.5); Total Bilirubin 0.6 mg/dL (0.30-1.20); Total Protein 5.5 g/dL (6.2-8.2)
--- NOTE | 2021-05-03 12:56 | P.DS ---
Providers Date of admission: 04/25/21 20:33 Expected date of discharge: 05/03/21 Attending physician: Martin Josue MD Consults: 04/25/21 20:34 Consult Physician Routine Consulting Provider: Juancho Mcnally Consult Reason/Comments: COVID Do you want consulting provider notified?: Yes Primary care physician: Jeri Stone MD Hospital Course: Discharge Diagnosis: Acute respiratory failure with hypoxia secondary to COVID 19 pneumonia Acute kidney injury, resolved with IV fluids Elevated d-dimer, CTA and Dopplers negative. Hospital Course: Patient is a very pleasant 65-year-old male with no known reported past medical history. He presented to the emergency department on 04/25/21 with reports of increased shortness of breath, worsening fatigue and cough status post diagnosis with Covid 19 virus infection on 04/21/21 at [facility]. He underwent full workup in the emergency department with EKG revealing normal sinus rhythm and 94 bpm. Chest x-ray consistent with multifocal pneumonia. Laboratory findings revealed CBC to be unremarkable, BMP showing slightly elevated renal function with BUN of 26, creatinine 1.38, and GFR of 54 with baseline creatinine of 1.2. Inflammatory markers elevated d-dimer 1.01, LDH of 1446 and CRP of 17.6. Ferritin was also elevated at 2692 and pro-calcitonin slightly elevated at 0.26. Upon arrival to the emergency department patient was found to be hypoxic with SpO2 of 85% on room air requiring oxygen supplementation. Patient is admitted under our services with consultation to pulmonology. CTA negative for acute PE showing findings compatible with atypical pneumonia. Bilateral lower extremity Dopplers negative for DVTs. Follow-up Chest x-ray completed 05/02/21 showing no change as patient continues to have scattered partially consolidative opacities in bilateral mid and lower lung zones. Patient underwent 8 day hospitalization course and currently doing well. He remains on 5 L O2 via nasal cannula with SpO2 of 91%. Patient does have increased oxygenation needs with ambulation requiring 8 L to maintain SpO2 of 90%. Pulmonology recommending discharge home on oxygen and to follow-up outpatient in their office in 2 weeks. Patient strongly educated on importance of not overexerting himself while at home as this could lead to hypoxia. Patient also educated on the importance of wearing oxygen at all times. Patient is being discharged home with oxygen condenser and tanks that will supply up to 8 L. Physical exam: Patient seen and fully evaluated at the bedside this morning. He was maintaining SpO2 91% on 5 L. Ambulatory pulse ox completed resulting in increased oxygenation demands with ambulation up to 8 L to maintain SpO2 of 90%. Patient otherwise denies having any complaints at this time including headache, lightheadedness, dizziness, chest pain, palpitations, shortness of breath at rest, nausea, vomiting. He does become short of breath with exertion, but quickly recovers at rest maintaining SpO2 of 90% or above. Patient is very eager to go home, arrangements have been made for patient to have oxygen condenser to supply oxygen up to 8 L and home care to be set up. Pulmonology also evaluated patient clearing him from pulmonology standpoint for discharge home at this time. Educated patient on importance of not overexerting himself patient reports verbal understanding. Patient will be discharged home with family at this time. He reports plenty of support at home and recommending home care, patient currently declining. Vital signs reviewed and stable. General: Nontoxic, no distress and appears stated age. Derm: Skin warm and dry, normal coloration for ethnicity. Head: Atraumatic, normocephalic and symmetric. Eyes: EOMs intact, no lid lag, and anicteric sclera Mouth: no lip lesions, mucus membranes moist Cardiovascular: regular rate and rhythm with normal S1S2, no murmur, positive posterior tibial pulses bilaterally, and cap refill < 2 seconds. Lungs: Respirations even, regular, and unlabored on 5 L O2 via nasal cannula. L ungs with sof bibasilar crackles, improving. No wheezes, rhonchi, or rales. Abdominal: soft, nontender to palpation, no guarding, no appreciable organomegaly Ext: ROM intact. No gross muscle atrophy, no edema, no contractures Neuro: Speech clear, face symmetrical and CN II-XII grossly intact with no noted focal neuro deficits Psych: Alert and oriented to person, place, time, and situation. Appropriate and pleasant affect. A total of 45 minutes of time were spent preparing this complex discharge summary. Patient Condition at Discharge: Stable Plan - Discharge Summary Discharge Rx Participant: Yes New Discharge Prescriptions: New Fluticasone Nasal [place] [Flonase Nasal [place]] 2 spray EA NOSTRIL DAILY PRN 15 Days #1 gm PRN Reason: Allergy Symptoms Ascorbic Acid [Vitamin C] 1,000 mg PO DAILY 30 Days #60 tab Cholecalciferol [Vitamin D3 (125 Mcg = 5000 Iu)] 125 mcg PO DAILY 30 Days #30 tablet dexAMETHasone ORAL [Hexadrol] 6 mg PO DAILY 2 Days #2 tab Zinc Sulfate [Orazinc] 220 mg PO DAILY 30 Days #30 cap Albuterol Inhaler [Ventolin Hfa Inhaler] 2 puff INHALATION RT-Q6H PRN 30 Days #1 inh PRN Reason: Shortness Of Breath Or Wheezing Continue Benzonatate [Tessalon Perles] 200 mg PO Q8H PRN #15 capsule PRN Reason: Cough Discharge Medication List Benzonatate [Tessalon Perles] 200 mg PO Q8H PRN #15 capsule 04/25/21 [Rx] Albuterol Inhaler [Ventolin Hfa Inhaler] 2 puff INHALATION RT-Q6H PRN 30 Days #1 inh 05/03/21 [Rx] Ascorbic Acid [Vitamin C] 1,000 mg PO DAILY 30 Days #60 tab 05/03/21 [Rx] Cholecalciferol [Vitamin D3 (125 Mcg = 5000 Iu)] 125 mcg PO DAILY 30 Days #30 tablet 05/03/21 [Rx] Fluticasone Nasal [place] [Flonase Nasal [place]] 2 spray EA NOSTRIL DAILY PRN 15 Days #1 gm 05/03/21 [Rx] Zinc Sulfate [Orazinc] 220 mg PO DAILY 30 Days #30 cap 05/03/21 [Rx] dexAMETHasone ORAL [Hexadrol] 6 mg PO DAILY 2 Days #2 tab 05/03/21 [Rx] Follow up Appointment(s)/Referral(s): [facility],Equipment [NON-STAFF] - As Needed (oxygen ) Oscar Patterson DO [Doctor of Osteopathic Medicine] - 2 Weeks [facility],Bridgette Senior [NON-STAFF] - As Needed Jeri Stone MD [Primary Care Provider] - 1-2 days Activity/Diet/Wound Care/Special Instructions: Activity: As tolerated. Take breaks as needed. Remember as we discussed do not overexert yourself. Overexertion can result in hypoxia resulting in respiratory distress. Remember slow unsteady when cerise. Diet: Heart healthy and carb consistent diet. Avoid salts, or foods with hidden salts such as canned or boxed foods and frozen dinners. Extra salt makes your heart work harder and traps the fluid in your body for longer. Special Instructions: Take all of your medications as directed and remember to keep all of your doctor's appointments and follow-up as needed. You are being discharged home on oxygen 5 L at all times and 8 L with ambulation. It is important to wear this oxygen at all times including while showering and sleeping. It is of utmost importance to stop and take a break if you become short of breath or fatigued, do not over exert yourself. It is also of utmost importance to turn of urine oxygen to 8 L prior to ambulation and then back down to 5 L at rest. He will continue with his oxygen supplementation until further instructed by trimmer sawyer. He will be following up with Dr. Patterson outpatient in his office in 2 weeks as they recommended. Thank you for allowing us to participate in your care, it was truly a pleasure having you for our patient!!! Discharge Disposition: HOME WITH HOME HEALTH SERVICES
--- NOTE | 2021-05-03 14:00 | P.PN ---
Subjective Progress Note Date: 05/03/21 This is a 65-year-old male patient with no significant medical history, takes no prescription medications on a regular basis, who presented to the emergency department on 04/25/2021 after being diagnosed with COVID-19 last week on Monday on 04/21/2021 at a [facility]. Patient started initially with symptoms of fever, chills, body aches, which progressed to worsening cough, shortness of breath. he came into the emergency department on 04/25/2021, he was on room air, with a pulse ox of 91-92% on room air he was given monoclonal antibody infusion in the ER and discharged home. When he got home his pulse ox was at 85%, and he returned to the emergency department for reevaluation. His chest x- ray showed coarse predominantly interstitial infiltrates in the mid and lower lung curtis, with some coalescent density in the left lower lobe. He was fairly unremarkable, except for his lymphocyte count was at 0.3, his d-dimer was 1.01, INR was 0.9, sodium was 135, potassium is 4.4, chloride is 96, CO2 is 26, B1 of 26 creatinine is 1.38, lactic acid was 1.3, ferritin level was 2692, AST was 62, ALT was 31, alkaline phosphatase was 86, LDH was 1446, CRP was 17.6, pro calcitonin level was 0.26. Patient was again tested for COVID-19 for PCR testing was found to be positive. He is currently on 5 liters of oxygen with a pulse ox of 92%, he is afebrile, breathing fairly comfortably, lung sounds reveal diminished breath sounds bilaterally with some mild crackles over right mid and lower lobe. He was started on Decadron, prophylactic Lovenox, COVID-19 vitamins, and he still within the window for Remdesivir on which he will be started today. The patient is seen today 04/27/2021 in follow-up on the regular medical floor. He is currently resting on his right side in bed. His breathing is about the same today compared to yesterday. No improvement. No worsening. He is still on 8 L high flow nasal cannula to maintain O2 saturation 90%. He is 0.9 normal saline at 75 ML's per hour. Dopplers of the lower extremity revealed no evidence of DVT. CT angiogram ruled out pulmonary embolism. There are findings compatible with atypical pneumonias including CoVID. Patchy groundglass opacities. Count 9.7. Hemoglobin 14.3. D-dimer 0.86. LDH 506. C-reactive protein 5.10. He is continued on Remdesivir, Lovenox, Decadron, vitamin supplements. On 04/28/2021 patient seen in follow-up on medical surgical floor, he is currently on 8 L of oxygen pulse ox 94%, his breathing, with, FiO2 has been turned out to 7 L, he is up in the chair, he states he feels a little better, occasional cough, no phlegm production, no complaint of chest discomfort. CTA of the chest was negative for pulmonary embolism, lower extremity Dopplers were negative for DVT, today's Remdesivir day 3 of treatment and he is on Decadron, prophylactic Lovenox, COVID-19 vitamins, no acute events overnight. On 04/29/2021 patient seen in follow-up on medical surgical floor. He is resting in bed, he is currently on 6 L of oxygen, he is laying on his left side, and his pulse ox is currently 96%, and FiO2 was dropped down to 5 L. No worsening dyspnea, lung sounds reveal diminished breath sounds with diffuse crackles bilaterally. No complaints of chest pain. Occasional cough, no significant phlegm production. Today's labs have been reviewed, showing white blood cell count of 12.12, hemoglobin is 14.4, d-dimer is 1.8, electrolytes and renal profile are within normal limits. His LDH slightly improved, and is down to 517, and his CRP is down to 2.7. Patient continues on Decadron, 6 program daily, prophylactic Lovenox, COVID-19 vitamins, today is day 4 of his Remdesivir treatment. On 04/30/2021 patient seen in follow-up on medical surgical floor. He is currently on 6 L of oxygen, his pulse ox is 90-93%, FiO2 has been dropped down to 5 L, his breathing comfortably, has no specific complaints, has been afebrile, hemodynamically his been stable, he is on day 4 of his Remdesivir, he remains on Lovenox. On 05/02/2021 patient seen in follow-up on medical surgical floor. He is bradycardic but, he sitting up in a recliner, in no acute distress. Lung sounds are essentially clear to auscultation, he is still on 6 L of oxygen his pulse ox of 92%, and FiO2 has been turned down to 5 L. He has completed his Remdesivir course, remains on Decadron, prophylactic Lovenox and multivitamins. No acute issues overnight. No fever or chills. His chest x-ray today shows partially consolidative opacities in mid lower lung zones, without significant change. Today's labs have been reviewed, his white count is 8.9, hemoglobin is 13.3, electrolytes and renal profile are within normal limits. His LDH is improving and is down to 402, and CRPs 11. On 05/03/2021 with patient seen in follow-up on medical surgical floor. He is breathing comfortably, he is currently on 5 L of oxygen, his lung sounds are es sentially clear to auscultation, his been tolerating ambulation, multiple desats with ambulation, but recovers. Mentation is awake and alert, responding appropriate, patient is sitting up in the recliner, minimal cough, no complaints of chest discomfort, he continues on Decadron 6 mg daily, Lovenox 40 mg daily, she is on multivitamins. He is on Ventolin inhaler, he completed his Remdesivir course a few days ago. Today's labs have been reviewed, his white count is 8.2, hemoglobin is 13.8, his d-dimer is 1.5, electrolytes are unremarkable, renal profile is within normal limits, his LDH is improving and is down to 287, his CRP is also down to 4.5. No acute events overnight, patient is hoping to be able to go home today. Objective - Vital Signs Vital signs: Vital Signs Temp 98.3 F 05/03/21 09:38 Pulse 75 05/03/21 09:38 Resp 17 05/03/21 09:38 BP 104/67 05/03/21 09:38 Pulse Ox 95 05/03/21 11:21 Intake & Output 05/02/21 05/03/21 05/03/21 18:59 06:59 18:59 Intake Total 640 Output Total 1420 Balance 640 -1420 Intake: Oral 640 Output: Urine 1420 Other: Voiding Method Toilet # Voids 5 # Bowel Movements 0 - Exam GENERAL EXAM: Alert, very pleasant, 65-year-old white male, on 5 L of oxygen with a pulse ox of 91% comfortable in no apparent distress. HEAD: Normocephalic/atraumatic. EYES: Normal reaction of pupils, equal size. Conjunctiva pink, sclera white. NOSE: Clear with pink turbinates. THROAT: No erythema or exudates. NECK: No masses, no JVD, no thyroid enlargement, no adenopathy. CHEST: No chest wall deformity. Symmetrical expansion. LUNGS: Equal air entry with breath sounds bilaterally, with some mild crackles CVS: Regular rate and rhythm, normal S1 and S2, no gallops, no murmurs, no rubs ABDOMEN: Soft, nontender. No hepatosplenomegaly, normal bowel sounds, no guarding or rigidity. EXTREMITIES: No clubbing, no edema, no cyanosis, 2+ pulses and upper and lower extremities. MUSCULOSKELETAL: Muscle strength and tone normal. SPINE: No scoliosis or deformity SKIN: No rashes CENTRAL NERVOUS SYSTEM: Alert and oriented -3. No focal deficits, tone is normal in all 4 extremities. PSYCHIATRIC: Alert and oriented -3. Appropriate affect. Intact judgment and insight. - Labs CBC & Chem 7: 05/03/21 07:00 05/03/21 07:00 Labs: Abnormal Lab Results - Last 24 Hours (Table) 05/03/21 05/03/21 05/03/21 Range/Units 07:00 07:00 07:00 Plt Count 471 H (140-440) X 10*3/uL MPV 9.3 L (9.5-12.2) fL D-Dimer 1.55 H (<0.60) mg/L FEU BUN/Creatinine Ratio 20.93 H (12.00-20.00) Ratio Calcium 8.5 L (8.7-10.3) mg/dL AST 56 H (14-35) U/L ALT 131 H (10-49) U/L Lactate Dehydrogenase 287 H (120-246) U/L C-Reactive Protein 4.50 H (0.00-0.80) mg/dL Total Protein 5.5 L (6.2-8.2) g/dL Albumin 3.0 L (3.8-4.9) g/dL Albumin/Globulin Ratio 1.23 L (1.60-3.17) g/dL Assessment and Plan Plan: Assessment: #1. Acute hypoxic respiratory failure related to acute COVID-19 related pneumonia, patient presented with 5 day history of symptoms, diagnosed with COVID-19 on an outpatient basis is [facility] on 04/21/2021. Patient was transfused with monoclonal antibody on 04/25/2021. Patient returned with worsening symptoms to the emergency department on the same day and was admitted related to acute hypoxia. Patient is a candidate for Remdesivir and we will start it today on 04/26/2021, he is not vaccinated against COVID-19. Remdesivir was started on 04/26/2021 #2. Elevated d-dimer, ruled out possibility of lower extremity DVT or pulmonary embolism #3. Elevated inflammatory markers related to acute COVID-19 related pneumonia, improving #4. Nonsmoker, lifetime nonsmoker Plan: Clinical patient remains stable He is improving, Still requiring oxygen at 5 L Breathing comfortably, slightly desaturates with exertion but recovers No acute events overnight His inflammatory markers are improving He completed his course of Remdesivir Patient can be considered for discharge home today on supplemental oxygen, oral course of Decadron, Outpatient follow-up with Dr. Patterson in the office in 2 weeks Patient was instructed to come back for reevaluation with worsening dyspnea or hypoxia I performed a history & physical examination of the patient and discussed their management with my nurse practitioner, Iris Hale. I reviewed the nurse practitioner's note and agree with the documented findings and plan of care. Lung sounds are positive for mild crackles throughout the lung curtis. The f indings and the impression was discussed with the patient. I attest to the documentation by the nurse practitioner. Time with Patient: Less than 30
== END 2021-05-03 16:20 | disposition home health service (06) | DRG 177 ==
LOC: EC 18:17 → 4SSUR 20:33
PROVIDERS: ADMIT Internal Medicine; ATTEND Internal Medicine
PROC: XW033E5 Introduction of Remdesivir Anti-infective into Peripheral Vein, Percutaneous Approach, New Technology Group 5 (ICD-10-PCS; principal; 2021-04-26)
DX: U07.1 COVID-19 (principal); J12.82 Pneumonia due to coronavirus disease 2019; J96.01 Acute respiratory failure with hypoxia; N17.9 Acute kidney failure, unspecified; R79.1 Abnormal coagulation profile; Z80.0 Family history of malignant neoplasm of digestive organs; Z80.52 Family history of malignant neoplasm of bladder; Z82.5 Family history of asthma and other chronic lower respiratory diseases; Z85.46 Personal history of malignant neoplasm of prostate; Z80.49 Family history of malignant neoplasm of other genital organs; Z80.3 Family history of malignant neoplasm of breast; Z98.890 Other specified postprocedural states
CPT/HCPCS: 36415; 71045; 71275; 80048; 80053; 82728; 83605; 83615; 83735; 84145; 85025; 85027; 85379; 85610; 85730; 86140; 87635; 93005; 93970; 94640; 94760; 96361; 96374; 99285

== ENCOUNTER → 2022-10-06 | Outpatient (CLI) | payer MEDICARE, BC | END | disposition home or self-care (01) | LOC: LABWHC1 08:52 | PROVIDERS: ATTEND Urology | DX: C61 Malignant neoplasm of prostate (principal) | CPT/HCPCS: 36415; 84153 ==

== ENCOUNTER → 2024-11-13 | Outpatient (CLI) | payer MEDICARE, BC ==
[2024-11-13 15:27] LABS: Basophils # (A) 0.09 X 10*3/uL (0.00-0.10); Basophils % (A) 1.5 %; Eosinophils # (A) 0.62 X 10*3/uL (0.04-0.35); Eosinophils % (A) 10.3 %; HCT 46.7 % (39.6-50.0); HGB 15.0 g/dL (13.0-17.0); Immature Grans, Automated 0.50 %; Lymphocytes # (A) 1.60 X 10*3/uL (0.90-5.00); Lymphocytes % (A) 26.6 %; MCH 31.8 pg (27.0-32.0); MCHC 32.1 g/dL (32.0-37.0); MCV 98.9 FL (80.0-97.0); Monocytes # (A) 0.50 X 10*3/uL (0.20-1.00); Monocytes % (A) 8.3 %; NRBC Per 100 WBC 0 X 10*3/uL (0.00-0.01); Neutrophils # (A) 3.17 X 10*3/uL (1.80-7.70); Neutrophils % (A) 52.8 %; Platelet Count 210 X 10*3/uL (140-440); RBC 4.72 X 10*6/uL (4.40-5.60); RDW 13.2 % (11.5-14.5); WBC 6.01 X 10*3/uL (4.50-10.00)
[2024-11-13 15:37] LABS: ALT 25 U/L (10-49); AST 23 U/L (14-35); Albumin 4.5 g/dL (3.8-4.9); Albumin/Globulin Ratio 2.25 Ratio (1.60-3.17); Alkaline Phosphatase 50 U/L (41-126); Anion Gap 12.70 mmol/L (4.00-12.00); BUN/Creat Ratio 13.46 Ratio (12.00-20.00); Blood Urea Nitrogen 17.5 mg/dL (9.0-27.0); Calcium 9.2 mg/dL (8.7-10.3); Carbon Dioxide 27.3 mmol/L (21.6-31.8); Chloride 105 mmol/L (96-109); Cholesterol 206.00 mg/dL (0.00-200.00); Globulin 2.0 g/dL (1.6-3.3); Glucose 93 mg/dL (70-110); HDL Cholesterol 68.00 mg/dL (40.00-60.00); LDL Cholesterol,Calculated 104.6 mg/dL (0.0-131.0); Potassium 4.4 mmol/L (3.5-5.5); Sodium 145 mmol/L (135-145); Total Protein 6.5 g/dL (6.2-8.2); Triglycerides 167.00 mg/dL (0.00-149.00); VLDL Calculation 33.40 mg/dL (5.00-40.00)
[2024-11-13 15:42] LABS: Prostate Specific Antigen <0.01 ng/mL (0.000-4.500)
== END | disposition home or self-care (01) ==
LOC: LABWHC1 08:17
PROVIDERS: ATTEND Urology
DX: E78.5 Hyperlipidemia, unspecified (principal); C61 Malignant neoplasm of prostate
CPT/HCPCS: 36415; 80053; 80061; 84153; 85025